=== PATIENT | male | born 1965 | race Caucasian/White ===

== ENCOUNTER 2016-05-18 15:14 | Emergency (ER) | payer MEDICARE, MEDICAID ==
[~2016-05-18] VITALS: Ht 165.1 cm; Wt 82.0 kg
[~2016-05-18 15:14] MED LIST: ALBUTEROL SUL0.083 % IN; AMOXICILLIN500 MG PO; AMOXICILLIN875 MG PO; ANTIVERT25 MG OR; ASPIRIN81 MG PO; AUGMENTIN875TAB OR; BACTRIM DS1 TAB PO; BENTYL10 MG PO; CARAFATE PO; CARVEDILOL6.25 MG OR; CEPHALEXIN500 MG PO; CIPRO500 MG OR; CIPROFLOXACN500 MG PO; CLOPIDOGREL75 MG PO; COREG12.5 MG PO; ENALAPRIL2.5 MG PO; FLEXERIL PO; GLIPIZIDE ER5 M1 PO; GLIPIZIDE XL5 MG PO; GLIPIZIDE10 M2 PO; GLYBURIDE2.5 MG PO; LIPITOR20 M1 PO; LORTAB 5 OR; LORTAB5 OR; LOVASTATIN40 M1 PO; LOVASTATIN40 MG PO; LOVAZA1 GM PO; METFORMIN HCL1000 MG PO; METFORMIN500 MG OR; METRONIDAZOL500 MG PO; MOTRIN400 MG OR; NAPROSYN500 MG OR; NAPROSYN500 MG PO; NIACIN ER1000 MG PO; OMEGA 3 ACID ETHYL ESTERS PO; OMEPRAZOLE20 MG PO; PERCOCET 10/31 COMBO PO; PERCOCET 5/325M1 TAB OR; PERCOCET 5/325M1 TAB PO; PERCOCET1 TA4 PO; PLAVIX75 MG PO; PREVPAC PO; PRILOSEC20 MG/CAP PO; PROAIR HFA IN; PROTONIX40 M2 PO; PROTONIX40 MG PO; RANITIDINE150 MG PO; SIMVASTATIN20 MG OR; TRAMADOL HCL50 MG PO; TRICOR145 MG OR; TRICOR145 MG PO; TRILIPIX135 MG OR; ULTRAM50 M1 PO; ULTRAM50 MG OR; ULTRAM50 MG PO; ZOFRAN ODT8 MG PO; no home meds
[2016-05-18 16:02] LABS: HEMATOCRIT 40.1 % (39.0-50.0); IMMATURE GRANULOCYTES 0.3 % (0.0-1.0); MEAN CELL VOLUME 85.9 fL CALC (80.0-100.0); MEAN CORPUSCULAR HGB CONC 34.9 g/L CALC (32.0-36.0); NEUT# 10.46 thou/uL (1.82-7.42); RED BLOOD COUNT 4.67 mill/uL (4.70-6.10)
[2016-05-18 16:17] LABS: ALBUMIN 4.1 g/dL (3.2-5.0); ALKALINE PHOSPHATASE 76 u/l (38-126); ANION GAP 16 (6-22 (CALC)); BILIRUBIN, TOTAL 0.6 mg/dL (0.0-1.4); BUN 9 mg/dL (9-20); BUN/CREATININE RATIO 11 (12-20 (CALC)); CALCIUM 9.3 mg/dL (8.4-10.2); CARBON DIOXIDE 24 mmol/l (22-30); CHLORIDE 108 mmol/l (95-108); CREATININE 0.8 mg/dL (0.7-1.3); GFR > 60 ML/MIN (>=60 (CALC)); GFR FOR AFR.AMER. > 60 ML/MIN (>=60 (CALC)); GLUCOSE 89 mg/dL (75-110); POTASSIUM 4.1 mmol/l (3.5-5.1); SGOT/AST 23 u/l (17-59); SGPT/ALT 30 u/l (21-72); SODIUM 143 mmol/l (137-146); TOTAL PROTEIN 6.7 g/dL (6.3-8.2)
[2016-05-18 16:28] LABS: MYOGLOBIN 22 ng/mL (0 - 121)
[2016-05-18] MEDS ORDERED: PREDNISONE10 MG PO (16:57)
[2016-05-18] MEDS ORDERED: VENTOLIN HF1 IN (16:57)
[2016-05-18] MEDS ORDERED: ZITHROMAX250 MG PO (16:57)
[2016-05-18 16:58] VITALS: BP 140/92
== END 2016-05-18 17:10 | disposition home or self-care (01) ==
LOC: ED 15:14
PROVIDERS: Emergency Medicine
DX: J40 Bronchitis, not specified as acute or chronic (principal); R06.2 Wheezing; R06.02 Shortness of breath; R05 Cough; I10 Essential (primary) hypertension; R53.83 Other fatigue

== ENCOUNTER 2016-08-24 10:59 | Inpatient (IN) | payer MEDICARE, MEDICAID ==
[~2016-08-24] VITALS: Ht 165.1 cm; Wt 86.2 kg
[~2016-08-24 10:59] MED LIST changes: +PREDNISONE10 MG PO; +VENTOLIN HF1 IN; +ZITHROMAX250 MG PO
[2016-08-24] MEDS ORDERED: LISINOPRIL10 M1 PO (11:31)
[2016-08-24 12:18] LABS: ALBUMIN 4.7 g/dL (3.2-5.0); ALKALINE PHOSPHATASE 91 u/l (38-126); ANION GAP 15 (6-22 (CALC)); BILIRUBIN, TOTAL 0.5 mg/dL (0.0-1.4); BUN 8 mg/dL (9-20); BUN/CREATININE RATIO 9 (12-20 (CALC)); CALCIUM 8.9 mg/dL (8.4-10.2); CARBON DIOXIDE 27 mmol/l (22-30); CHLORIDE 98 mmol/l (95-108); CPK 63 u/l (52-200); CREATININE 0.9 mg/dL (0.7-1.3); GFR > 60 ML/MIN (>=60 (CALC)); GFR FOR AFR.AMER. > 60 ML/MIN (>=60 (CALC)); GLUCOSE 206 mg/dL (75-110); HEMATOCRIT 46.5 % (39.0-50.0); IMMATURE GRANULOCYTES 0.4 % (0.0-1.0); LIPASE 55 u/l (23-300); MEAN CELL VOLUME 87.4 fL CALC (80.0-100.0); MEAN CORPUSCULAR HGB 30.1 pG CALC (26.0-32.0); MEAN CORPUSCULAR HGB CONC 34.4 g/L CALC (32.0-36.0); NEUT# 12.71 thou/uL (1.82-7.42); POTASSIUM 3.7 mmol/l (3.5-5.1); RED BLOOD COUNT 5.32 mill/uL (4.70-6.10); RED CELL DISTRI WIDTH 12.5 % (11.5-15.5); SGOT/AST 28 u/l (17-59); SGPT/ALT 47 u/l (21-72); SODIUM 136 mmol/l (137-146); TOTAL PROTEIN 7.8 g/dL (6.3-8.2)
[2016-08-24 12:23] LABS: PROTHROMBIN TIME 10.8 SECONDS (9.0-12.5)
[2016-08-24 12:28] LABS: MYOGLOBIN 37 ng/mL (0 - 121)
[2016-08-24 13:27] LABS: URINE BILIRUBIN - DIPSTICK NEGATIVE (NEGATIVE); URINE BLOOD DIPSTICK TRACE-INTACT (NEGATIVE); URINE CLARITY CLEAR; URINE COLOR YELLOW; URINE GLUCOSE - DIPSTICK 250 mg/dL (NEGATIVE); URINE KETONE NEGATIVE (NEGATIVE); URINE LEUK ESTERASE NEGATIVE (Negative); URINE NITRITE - DIPSTICK NEGATIVE (Negative); URINE PH 5.5 (4.5-8.0); URINE PROTEIN - DIPSTICK TRACE mg/dL (NEG-TRACE); URINE SPECIFIC GRAVITY 1.025; URINE UROBILINOGEN - DIPSTICK 0.2 E.U./dL (0.2)
[2016-08-24 13:28] LABS: INFLUENZA A NONE DETECTED (NONE DETECT); INFLUENZA B NONE DETECTED (NONE DETECT)
[2016-08-24 19:20] VITALS: BP 116/77
[2016-08-25 04:20] VITALS: BP 122/82
[2016-08-25 06:42] LABS: ALBUMIN 4.1 g/dL (3.2-5.0); ALKALINE PHOSPHATASE 75 u/l (38-126); ANION GAP 16 (6-22 (CALC)); BILIRUBIN, TOTAL 0.4 mg/dL (0.0-1.4); BUN 13 mg/dL (9-20); BUN/CREATININE RATIO 17 (12-20 (CALC)); CALCIUM 8.8 mg/dL (8.4-10.2); CARBON DIOXIDE 24 mmol/l (22-30); CHLORIDE 100 mmol/l (95-108); CREATININE 0.8 mg/dL (0.7-1.3); GFR > 60 ML/MIN (>=60 (CALC)); GFR FOR AFR.AMER. > 60 ML/MIN (>=60 (CALC)); GLUCOSE 260 mg/dL (75-110); POTASSIUM 4.5 mmol/l (3.5-5.1); SGOT/AST 24 u/l (17-59); SGPT/ALT 42 u/l (21-72); SODIUM 135 mmol/l (137-146); TOTAL PROTEIN 6.6 g/dL (6.3-8.2)
[2016-08-25] MEDS ORDERED: DUONEB NEB (09:01)
[2016-08-25] MEDS ORDERED: AUGMENTIN875TAB PO (09:25)
[2016-08-25] MEDS ORDERED: AMANTADINE100 MG PO (09:28)
[2016-08-25] MEDS ORDERED: FLONASE AL50 MCG/ACT (09:37)
[2016-08-25 09:59] LABS: HEMATOCRIT 40.4 % (39.0-50.0); HEMOGLOBIN 13.9 g/dl (14.0-18.0); IMMATURE GRANULOCYTES 0.8 % (0.0-1.0); MEAN CELL VOLUME 86.5 fL CALC (80.0-100.0); MEAN CORPUSCULAR HGB 29.8 pG CALC (26.0-32.0); MEAN CORPUSCULAR HGB CONC 34.4 g/L CALC (32.0-36.0); NEUT# 13.39 thou/uL (1.82-7.42); RED BLOOD COUNT 4.67 mill/uL (4.70-6.10); RED CELL DISTRI WIDTH 12.5 % (11.5-15.5)
[2016-08-25 10:55] VITALS: BP 117/72
[2016-08-25 15:24] VITALS: BP 123/77
[2016-08-25 19:13] VITALS: BP 122/68
[2016-08-25 23:27] VITALS: BP 119/65
[2016-08-26 04:17] VITALS: BP 123/76
[2016-08-26 05:41] LABS: HEMATOCRIT 38.6 % (39.0-50.0); HEMOGLOBIN 13.1 g/dl (14.0-18.0); IMMATURE GRANULOCYTES 1.1 % (0.0-1.0); MEAN CELL VOLUME 87.5 fL CALC (80.0-100.0); MEAN CORPUSCULAR HGB 29.7 pG CALC (26.0-32.0); MEAN CORPUSCULAR HGB CONC 33.9 g/L CALC (32.0-36.0); NEUT# 16.84 thou/uL (1.82-7.42); RED BLOOD COUNT 4.41 mill/uL (4.70-6.10); RED CELL DISTRI WIDTH 12.4 % (11.5-15.5)
[2016-08-26 05:46] LABS: ALBUMIN 3.6 g/dL (3.2-5.0); ALKALINE PHOSPHATASE 67 u/l (38-126); ANION GAP 13 (6-22 (CALC)); BILIRUBIN, TOTAL 0.3 mg/dL (0.0-1.4); BUN 12 mg/dL (9-20); BUN/CREATININE RATIO 17 (12-20 (CALC)); CALCIUM 8.6 mg/dL (8.4-10.2); CARBON DIOXIDE 24 mmol/l (22-30); CHLORIDE 103 mmol/l (95-108); CREATININE 0.7 mg/dL (0.7-1.3); GFR > 60 ML/MIN (>=60 (CALC)); GFR FOR AFR.AMER. > 60 ML/MIN (>=60 (CALC)); GLUCOSE 192 mg/dL (75-110); POTASSIUM 4.3 mmol/l (3.5-5.1); SGOT/AST 20 u/l (17-59); SGPT/ALT 39 u/l (21-72); SODIUM 136 mmol/l (137-146); TOTAL PROTEIN 5.9 g/dL (6.3-8.2)
[2016-08-26 07:41] VITALS: BP 137/83
[2016-08-26 12:30] VITALS: BP 119/71
[2016-08-26 16:30] VITALS: BP 121/74
[2016-08-26 19:35] VITALS: BP 139/79
[2016-08-27 00:07] VITALS: BP 151/84
[2016-08-27 04:00] VITALS: BP 115/66
[2016-08-27 05:39] LABS: HEMATOCRIT 39.3 % (39.0-50.0); HEMOGLOBIN 13.6 g/dl (14.0-18.0); IMMATURE GRANULOCYTES 4.5 % (0.0-1.0); MEAN CELL VOLUME 86.8 fL CALC (80.0-100.0); MEAN CORPUSCULAR HGB CONC 34.6 g/L CALC (32.0-36.0); NEUT# 15.84 thou/uL (1.82-7.42); RED BLOOD COUNT 4.53 mill/uL (4.70-6.10); RED CELL DISTRI WIDTH 12.3 % (11.5-15.5)
[2016-08-27 05:55] LABS: ALBUMIN 3.7 g/dL (3.2-5.0); ALKALINE PHOSPHATASE 64 u/l (38-126); ANION GAP 15 (6-22 (CALC)); BILIRUBIN, TOTAL 0.5 mg/dL (0.0-1.4); BUN 14 mg/dL (9-20); BUN/CREATININE RATIO 17 (12-20 (CALC)); CALCIUM 8.8 mg/dL (8.4-10.2); CARBON DIOXIDE 23 mmol/l (22-30); CHLORIDE 103 mmol/l (95-108); CREATININE 0.8 mg/dL (0.7-1.3); GFR > 60 ML/MIN (>=60 (CALC)); GFR FOR AFR.AMER. > 60 ML/MIN (>=60 (CALC)); GLUCOSE 78 mg/dL (75-110); POTASSIUM 3.9 mmol/l (3.5-5.1); SGOT/AST 50 u/l (17-59); SGPT/ALT 54 u/l (21-72); SODIUM 138 mmol/l (137-146); TOTAL PROTEIN 6.1 g/dL (6.3-8.2)
[2016-08-27 08:00] VITALS: BP 150/88
[2016-08-27 11:35] VITALS: BP 142/83
[2016-08-27 16:10] VITALS: BP 161/87
[2016-08-27 20:11] VITALS: BP 139/75
[2016-08-28] VITALS (7 sets, daily range): BP systolic 126–174; BP diastolic 69–88
[2016-08-28 04:51] LABS: HEMATOCRIT 38.7 % (39.0-50.0); HEMOGLOBIN 13.3 g/dl (14.0-18.0); IMMATURE GRANULOCYTES 4.2 % (0.0-1.0); MEAN CORPUSCULAR HGB 29.9 pG CALC (26.0-32.0); MEAN CORPUSCULAR HGB CONC 34.4 g/L CALC (32.0-36.0); NEUT# 6.44 thou/uL (1.82-7.42); RED BLOOD COUNT 4.45 mill/uL (4.70-6.10); RED CELL DISTRI WIDTH 12.2 % (11.5-15.5)
[2016-08-28 05:03] LABS: ANION GAP 11 (6-22 (CALC)); BUN 10 mg/dL (9-20); BUN/CREATININE RATIO 12 (12-20 (CALC)); CALCIUM 8.3 mg/dL (8.4-10.2); CARBON DIOXIDE 30 mmol/l (22-30); CHLORIDE 101 mmol/l (95-108); CREATININE 0.9 mg/dL (0.7-1.3); GFR > 60 ML/MIN (>=60 (CALC)); GFR FOR AFR.AMER. > 60 ML/MIN (>=60 (CALC)); GLUCOSE 104 mg/dL (75-110); POTASSIUM 3.6 mmol/l (3.5-5.1); SODIUM 138 mmol/l (137-146)
[2016-08-29 00:29] VITALS: BP 150/91
[2016-08-29 07:32] VITALS: BP 156/89
[2016-08-29 11:52] VITALS: BP 130/81
== END 2016-08-29 13:30 | disposition home or self-care (01) | DRG 386 ==
LOC: ENPENDDIS → ED 10:59 → ED-I 16:24 → ED 17:32 → MS2 17:33
PROVIDERS: Emergency Medicine; ADMIT Internal Medicine Geriatric Medicine; ATTEND Internal Medicine Geriatric Medicine
DX: K50.80 Crohn's disease of both small and large intestine without complications (principal); J44.0 Chronic obstructive pulmonary disease with (acute) lower respiratory infection; J20.9 Acute bronchitis, unspecified; F17.210 Nicotine dependence, cigarettes, uncomplicated; I10 Essential (primary) hypertension; E11.9 Type 2 diabetes mellitus without complications; K21.9 Gastro-esophageal reflux disease without esophagitis; M19.90 Unspecified osteoarthritis, unspecified site; E78.5 Hyperlipidemia, unspecified; I25.2 Old myocardial infarction; Z95.5 Presence of coronary angioplasty implant and graft; Z79.84 Long term (current) use of oral hypoglycemic drugs
CPT/HCPCS: J1956; Q9967

== ENCOUNTER 2016-09-11 18:10 | Emergency (ER) | payer MEDICARE, MEDICAID ==
[~2016-09-11] VITALS: Ht 170.2 cm; Wt 85.5 kg
[~2016-09-11 18:10] MED LIST changes: +AMANTADINE100 MG PO; +AUGMENTIN875TAB PO; +DUONEB NEB; +FLONASE AL50 MCG/ACT; +LISINOPRIL10 M1 PO
[2016-09-11 19:57] LABS: HEMATOCRIT 42.1 % (39.0-50.0); HEMOGLOBIN 14.4 g/dl (14.0-18.0); IMMATURE GRANULOCYTES 0.4 % (0.0-1.0); MEAN CELL VOLUME 87.5 fL CALC (80.0-100.0); MEAN CORPUSCULAR HGB 29.9 pG CALC (26.0-32.0); MEAN CORPUSCULAR HGB CONC 34.2 g/L CALC (32.0-36.0); NEUT# 7.28 thou/uL (1.82-7.42); RED BLOOD COUNT 4.81 mill/uL (4.70-6.10); RED CELL DISTRI WIDTH 12.6 % (11.5-15.5)
[2016-09-11 20:08] LABS: ALBUMIN 4.4 g/dL (3.2-5.0); ALKALINE PHOSPHATASE 91 u/l (38-126); AMYLASE 42 u/l (30-110); ANION GAP 16 (6-22 (CALC)); BILIRUBIN, TOTAL 0.5 mg/dL (0.0-1.4); BUN 11 mg/dL (9-20); BUN/CREATININE RATIO 15 (12-20 (CALC)); CALCIUM 9.7 mg/dL (8.4-10.2); CARBON DIOXIDE 24 mmol/l (22-30); CHLORIDE 102 mmol/l (95-108); CREATININE 0.7 mg/dL (0.7-1.3); GFR > 60 ML/MIN (>=60 (CALC)); GFR FOR AFR.AMER. > 60 ML/MIN (>=60 (CALC)); GLUCOSE 152 mg/dL (75-110); LIPASE 115 u/l (23-300); POTASSIUM 4.5 mmol/l (3.5-5.1); SGOT/AST 32 u/l (17-59); SGPT/ALT 51 u/l (21-72); SODIUM 137 mmol/l (137-146); TOTAL PROTEIN 7.1 g/dL (6.3-8.2)
[2016-09-11 21:30] LABS: URINE BILIRUBIN - DIPSTICK NEGATIVE (NEGATIVE); URINE BLOOD DIPSTICK TRACE-INTACT (NEGATIVE); URINE CLARITY CLEAR; URINE COLOR YELLOW; URINE GLUCOSE - DIPSTICK 250 mg/dL (NEGATIVE); URINE KETONE NEGATIVE (NEGATIVE); URINE LEUK ESTERASE NEGATIVE (NEGATIVE); URINE NITRITE - DIPSTICK NEGATIVE (Negative); URINE PROTEIN - DIPSTICK NEGATIVE (NEG-TRACE); URINE SPECIFIC GRAVITY 1.025; URINE UROBILINOGEN - DIPSTICK 0.2 E.U./dL (0.2)
[2016-09-11] MEDS ORDERED: ULTRAM50 M1 PO (23:20)
[2016-09-11] MEDS ORDERED: ZOFRAN ODT4 MG PO (23:32)
[2016-09-11 23:43] VITALS: BP 152/77
== END 2016-09-11 23:40 | disposition home or self-care (01) ==
LOC: ED 18:10
PROVIDERS: Emergency Medicine
DX: R10.31 Right lower quadrant pain (principal); I88.9 Nonspecific lymphadenitis, unspecified; E11.9 Type 2 diabetes mellitus without complications; Z79.84 Long term (current) use of oral hypoglycemic drugs; I10 Essential (primary) hypertension; I25.2 Old myocardial infarction; F17.210 Nicotine dependence, cigarettes, uncomplicated; Z95.9 Presence of cardiac and vascular implant and graft, unspecified; K21.9 Gastro-esophageal reflux disease without esophagitis; R10.9 Unspecified abdominal pain
CPT/HCPCS: Q9967

== ENCOUNTER 2016-09-29 10:51 | Day surgery (SDC) | payer MEDICARE, MEDICAID ==
[~2016-09-29] VITALS: Ht 170.2 cm; Wt 83.9 kg
[~2016-09-29 10:51] MED LIST changes: +ZOFRAN ODT4 MG PO
[2016-09-29 15:13] VITALS: BP 118/76
== END 2016-09-29 14:00 | disposition home or self-care (01) ==
LOC: ENDO 10:51 → ORM 20:45 → ENDO 20:45 → ORM 21:45
PROVIDERS: ATTEND Internal Medicine Gastroenterology
PROC: 0DBN8ZX Excision of Sigmoid Colon, Via Natural or Artificial Opening Endoscopic, Diagnostic (ICD-10-PCS; principal; 2016-09-29)
PROC: 0DBP8ZX Excision of Rectum, Via Natural or Artificial Opening Endoscopic, Diagnostic (ICD-10-PCS; 2016-09-29)
PROC: 0DBE8ZX Excision of Large Intestine, Via Natural or Artificial Opening Endoscopic, Diagnostic (ICD-10-PCS; 2016-09-29)
PROC: 0DBP8ZX Excision of Rectum, Via Natural or Artificial Opening Endoscopic, Diagnostic (ICD-10-PCS; 2016-09-29)
DX: R10.31 Right lower quadrant pain (principal); R11.0 Nausea; R19.7 Diarrhea, unspecified; K63.5 Polyp of colon; K62.1 Rectal polyp; K64.4 Residual hemorrhoidal skin tags; K64.8 Other hemorrhoids

== ENCOUNTER 2016-10-31 21:28 | Observation (INO) | payer MEDICARE, MEDICAID ==
[~2016-10-31] VITALS: Ht 170.2 cm; Wt 83.0 kg
--- NOTE | 2016-10-31 21:30 | NUR ---
PATIENT AMBULATORY TO ROOM 15. UNDRESSED INTO A GOWN. PLACED ON MONITOR. AWAITING MD HOLLIDAY.
--- NOTE | 2016-10-31 22:23 | NUR ---
PATIENT MEDICATED ORDERED. STATES HE WOULD LIKE SOMETHING FOR HIS CHEST PAIN. EXPLAINED THE PURPOSE AND FUNCTION OF NTG PASTE. AND PATIENT RESPONDS WITH HE WOULD LIKE SOME PAIN MEDICINE FOR HIS UPPER ABDOMINAL PAIN, HOWEVER PATIENT DENIES PAIN ON TRIAGE.
[2016-10-31 22:29] LABS: HEMATOCRIT 45.9 % (39.0-50.0); HEMOGLOBIN 15.9 g/dl (14.0-18.0); IMMATURE GRANULOCYTES 1.2 % (0.0-1.0); MEAN CELL VOLUME 86.4 fL CALC (80.0-100.0); MEAN CORPUSCULAR HGB 29.9 pG CALC (26.0-32.0); MEAN CORPUSCULAR HGB CONC 34.6 g/L CALC (32.0-36.0); NEUT# 8.91 thou/uL (1.82-7.42); RED BLOOD COUNT 5.31 mill/uL (4.70-6.10); RED CELL DISTRI WIDTH 12.9 % (11.5-15.5)
--- NOTE | 2016-10-31 22:30 | NUR ---
PATIENT ARRIVES AT BEDSIDE.
[2016-10-31 22:42] LABS: ALBUMIN 4.8 g/dL (3.2-5.0); ALKALINE PHOSPHATASE 89 u/l (38-126); ANION GAP 20 (6-22 (CALC)); BILIRUBIN, TOTAL 0.8 mg/dL (0.0-1.4); BUN 23 mg/dL (9-20); BUN/CREATININE RATIO 12 (12-20 (CALC)); CALCIUM 10.3 mg/dL (8.4-10.2); CARBON DIOXIDE 22 mmol/l (22-30); CHLORIDE 99 mmol/l (95-108); CREATININE 1.9 mg/dL (0.7-1.3); GFR 38 ML/MIN (>=60 (CALC)); GFR FOR AFR.AMER. 46 ML/MIN (>=60 (CALC)); GLUCOSE 289 mg/dL (75-110); POTASSIUM 4.3 mmol/l (3.5-5.1); SGOT/AST 19 u/l (17-59); SGPT/ALT 40 u/l (21-72); SODIUM 137 mmol/l (137-146)
[2016-10-31 22:53] LABS: ACT PARTIAL THROMBO TIME 27.5 SECONDS (20.0-32.5); PROTHROMBIN TIME 10.7 SECONDS (9.0-12.5)
[2016-10-31 22:54] LABS: MYOGLOBIN 109 ng/mL (0 - 121)
--- NOTE | 2016-10-31 23:30 | NUR ---
PATIENT MEDICATED FOR EPIGASTRIC PAIN. STATES HE WOULD LIKE SOME PAIN MEDICATION FOR HIS "MASSIVE HEADACHE" PATIENT AWARE OF PLANS TO ADMIT
--- NOTE | 2016-11-01 00:17 | NUR ---
REPORT CALLED TO JOHNATHAN. PATIENT READIED FOR TRANSPORT TO FLOOR, ON MONITOR, WITH RN.
[2016-11-01 00:30] VITALS: BP 110/76
--- NOTE | 2016-11-01 00:30 | NUR ---
PT ARRIVED TO UNIT VIA WHEELCHAIR WITH ER STAFF. ALERT AND ORIENTED UPON ARRIVAL. NURSE LIAISON IN PLACE. C/O HEADACHE AND EPIGASTRIC PAIN CURRENTLY; STATES THAT GI COCKTAIL GIVEN IN ED MADE HIM NAUSEOUS. ORIENTED TO ROOM AND CALL LIGHT SYSTEM. SAFETY MEASURES IN PLACE. CALL LIGHT WITHIN REACH.
--- NOTE | 2016-11-01 04:00 | NUR ---
PT ASLEEP AT THIS TIME. NO SIGNS OF DISTRESS NOTED. RESPIRATIONS EVEN AND UNLABORED. NO CHANGES IN ASSESSMENT. CONDITION IS STABLE WITH NEGATIVE TROPONINS. NITRO PASTE REMOVED FROM CHEST FOR DECREASED BLOOD PRESSURE. SAFETY MEASURES IN PLACE. CALL LIGHT WITHIN REACH.
[2016-11-01 04:40] VITALS: BP 99/62
[2016-11-01 05:52] LABS: URINE BLOOD DIPSTICK NEGATIVE (NEGATIVE); URINE CLARITY CLEAR; URINE COLOR YELLOW; URINE GLUCOSE - DIPSTICK 100 mg/dL (NEGATIVE); URINE KETONE TRACE mg/dL (NEGATIVE); URINE LEUK ESTERASE NEGATIVE (NEGATIVE); URINE NITRITE - DIPSTICK NEGATIVE (Negative); URINE PROTEIN - DIPSTICK 30 mg/dL (NEG-TRACE); URINE SPECIFIC GRAVITY >=1.030; URINE UROBILINOGEN - DIPSTICK 0.2 E.U./dL (0.2)
[2016-11-01 06:31] LABS: URINE BILIRUBIN - DIPSTICK NEGATIVE (NEGATIVE)
[2016-11-01 06:36] LABS: URINE HYALINE CAST FEW lpf (NONE-RARE); URINE MUCUS FEW hpf (NONE-FEW); URINE SQUAMOUS EPITHELIAL CELL FEW EPI/hpf (0-FEW)
[2016-11-01 06:37] LABS: URINE COARSE GRANULAR CAST FEW lpf; URINE FINE GRAN CAST FEW lpf
[2016-11-01 06:38] LABS: URINE BACTERIA MODERATE hpf
--- NOTE | 2016-11-01 07:20 | NUR ---
PT RESTING WITH EYES CLOSED; NO S/SX OF DISTRESS NOTED; CALL COLLIER WITHIN REACH; WILL CONTINUE TO MONITOR.
[2016-11-01 08:06] LABS: HEMATOCRIT 43.1 % (39.0-50.0); HEMOGLOBIN 14.8 g/dl (14.0-18.0); IMMATURE GRANULOCYTES 1.3 % (0.0-1.0); MEAN CELL VOLUME 86.9 fL CALC (80.0-100.0); MEAN CORPUSCULAR HGB 29.8 pG CALC (26.0-32.0); MEAN CORPUSCULAR HGB CONC 34.3 g/L CALC (32.0-36.0); NEUT# 6.2 thou/uL (1.82-7.42); RED BLOOD COUNT 4.96 mill/uL (4.70-6.10)
[2016-11-01 08:24] LABS: ALBUMIN 4.4 g/dL (3.2-5.0); ALKALINE PHOSPHATASE 84 u/l (38-126); AMYLASE 49 u/l (30-110); ANION GAP 17 (6-22 (CALC)); BILIRUBIN, TOTAL 0.9 mg/dL (0.0-1.4); BUN 27 mg/dL (9-20); BUN/CREATININE RATIO 14 (12-20 (CALC)); CALCIUM 9.8 mg/dL (8.4-10.2); CARBON DIOXIDE 24 mmol/l (22-30); CHLORIDE 101 mmol/l (95-108); CHOLESTEROL HDL RATIO 9.1 (<4.4 (CALC)); CREATININE 1.9 mg/dL (0.7-1.3); GFR 38 ML/MIN (>=60 (CALC)); GFR FOR AFR.AMER. 46 ML/MIN (>=60 (CALC)); GLUCOSE 215 mg/dL (75-110); HDL CHOLESTEROL 25 mg/dL (>=40); LIPASE 90 u/l (23-300); POTASSIUM 4.5 mmol/l (3.5-5.1); SGOT/AST 17 u/l (17-59); SGPT/ALT 38 u/l (21-72); SODIUM 138 mmol/l (137-146); TOTAL CHOLESTEROL 227 mg/dl (0-199); TOTAL PROTEIN 7.3 g/dL (6.3-8.2)
[2016-11-01 08:27] VITALS: BP 111/69; BP 95/44
[2016-11-01 08:31] LABS: VLDL CHOLESTROL 180 mg/dl (5-56 (CALC))
[2016-11-01 08:33] LABS: TOTAL TRIGLYCERIDES 900 mg/dl (30-149)
--- NOTE | 2016-11-01 11:00 | NUR ---
PT AMBULATORY IN HALLS; DENIES PAIN; REQUESTING TO CALL MD FOR D/C ORDERS; WILL CONTINUE TO MONITOR.
[2016-11-01 11:18] VITALS: BP 111/74
[2016-11-01] MEDS ORDERED: PRANDIN1 MG PO (13:09)
[2016-11-01] MEDS ORDERED: TRICOR145 MG PO (13:15)
--- NOTE | 2016-11-01 13:47 | NUR ---
Discharge instructions given. Patient verbalizes understanding of same. Discharged in stable condition via Ambulatory to Home with family. All belongings sent with pt.
== END 2016-11-01 13:45 | disposition home or self-care (01) ==
LOC: ED 21:28 → ED-I 23:00 → ED 23:32 → MS2 23:33
PROVIDERS: Emergency Medicine; ADMIT Internal Medicine Geriatric Medicine; ATTEND Internal Medicine Geriatric Medicine
DX: R07.9 Chest pain, unspecified (principal); I10 Essential (primary) hypertension; I25.10 Atherosclerotic heart disease of native coronary artery without angina pectoris; E11.9 Type 2 diabetes mellitus without complications; J44.9 Chronic obstructive pulmonary disease, unspecified; E78.00 Pure hypercholesterolemia, unspecified; F17.210 Nicotine dependence, cigarettes, uncomplicated; M19.90 Unspecified osteoarthritis, unspecified site; K21.9 Gastro-esophageal reflux disease without esophagitis; I25.2 Old myocardial infarction; Z82.49 Family history of ischemic heart disease and other diseases of the circulatory system; Z95.5 Presence of coronary angioplasty implant and graft; Z95.1 Presence of aortocoronary bypass graft; Z87.11 Personal history of peptic ulcer disease; R06.02 Shortness of breath
CPT/HCPCS: G0378

== ENCOUNTER 2017-02-09 09:31 | Emergency (ER) | payer MEDICARE, MEDICAID ==
[~2017-02-09] VITALS: Ht 152.4 cm; Wt 82.0 kg
[~2017-02-09 09:31] MED LIST changes: +PRANDIN1 MG PO
[2017-02-09 10:23] LABS: INFLUENZA A NONE DETECTED (NONE DETECT); INFLUENZA B NONE DETECTED (NONE DETECT)
[2017-02-09] MEDS ORDERED: AMOXICILLIN500 M2 PO (11:13)
[2017-02-09 11:14] VITALS: BP 126/81
== END 2017-02-09 11:20 | disposition home or self-care (01) ==
LOC: ED 09:31
PROVIDERS: Emergency Medicine
DX: J40 Bronchitis, not specified as acute or chronic (principal); F17.210 Nicotine dependence, cigarettes, uncomplicated; R05 Cough

== ENCOUNTER 2017-02-15 20:14 | Emergency (ER) | payer MEDICARE, MEDICAID ==
[~2017-02-15 20:14] MED LIST changes: +AMOXICILLIN500 M2 PO
== END 2017-02-15 20:28 | disposition left against medical advice (07) ==
LOC: ED 20:14 → LWOBS 20:20
DX: Z91.19 Patient's noncompliance with other medical treatment and regimen (principal)

== ENCOUNTER 2017-03-11 11:40 | Emergency (ER) | payer MEDICARE, MEDICAID ==
[~2017-03-11] VITALS: Ht 170.2 cm; Wt 84.0 kg
[2017-03-11] MEDS ORDERED: TIZANIDINE HCL4 MG PO (12:04)
[2017-03-11] MEDS ORDERED: GLUCOTROL10 MG PO (12:05)
[2017-03-11] MEDS ORDERED: REPAGLINIDE1 MG PO (12:06)
[2017-03-11] MEDS ORDERED: COREG25 MG PO (12:07)
[2017-03-11] MEDS ORDERED: ATORVASTATIN CA20 MG PO (12:07)
[2017-03-11] MEDS ORDERED: OXYCOD/APAP1 TA4 PO (12:08)
[2017-03-11] MEDS ORDERED: OMEPRAZOLE20 M2 PO (12:09)
[2017-03-11] MEDS ORDERED: OMEGA 31000 MG PO (12:10)
[2017-03-11] MEDS ORDERED: VENTOLIN HFA IN (12:16)
[2017-03-11] MEDS ORDERED: TESSALON PER100 MG PO (12:16)
[2017-03-11] MEDS ORDERED: PREDNISONE50 MG PO (12:16)
[2017-03-11] MEDS ORDERED: ZITHROMAX250 MG PO (12:16)
[2017-03-11] MEDS ORDERED: MOTRIN800 MG PO (12:16)
[2017-03-11 12:34] LABS: INFLUENZA A NONE DETECTED (NONE DETECT); INFLUENZA B NONE DETECTED (NONE DETECT)
[2017-03-11 12:51] VITALS: BP 157/91
== END 2017-03-11 12:52 | disposition home or self-care (01) ==
LOC: ED 11:40
PROVIDERS: Emergency Medicine
DX: J40 Bronchitis, not specified as acute or chronic (principal); F17.210 Nicotine dependence, cigarettes, uncomplicated; R50.9 Fever, unspecified; R05 Cough; R11.2 Nausea with vomiting, unspecified; R42 Dizziness and giddiness

== ENCOUNTER 2017-04-12 15:17 | Emergency (ER) | payer MEDICARE, MEDICAID ==
[~2017-04-12] VITALS: Ht 170.2 cm; Wt 90.2 kg
[~2017-04-12 15:17] MED LIST changes: +ATORVASTATIN CA20 MG PO; +COREG25 MG PO; +GLUCOTROL10 MG PO; +MOTRIN800 MG PO; +OMEGA 31000 MG PO; +OMEPRAZOLE20 M2 PO; +OXYCOD/APAP1 TA4 PO; +PREDNISONE50 MG PO; +REPAGLINIDE1 MG PO; +TESSALON PER100 MG PO; +TIZANIDINE HCL4 MG PO; +VENTOLIN HFA IN
[2017-04-12] MEDS ORDERED: PENICILLN VK500 MG PO (15:54)
[2017-04-12 16:01] VITALS: BP 151/98
== END 2017-04-12 16:02 | disposition home or self-care (01) ==
LOC: ED 15:17
DX: J02.0 Streptococcal pharyngitis (principal); R50.9 Fever, unspecified; F17.210 Nicotine dependence, cigarettes, uncomplicated; R59.0 Localized enlarged lymph nodes

== ENCOUNTER 2017-05-20 19:41 | Emergency (ER) | payer MEDICARE, MEDICAID ==
[~2017-05-20] VITALS: Ht 170.2 cm; Wt 81.8 kg
[~2017-05-20 19:41] MED LIST changes: +PENICILLN VK500 MG PO
[2017-05-20 20:55] LABS: HEMATOCRIT 41.1 % (39.0-50.0); HEMOGLOBIN 13.8 g/dl (14.0-18.0); IMMATURE GRANULOCYTES 0.8 % (0.0-1.0); MEAN CELL VOLUME 87.6 fL CALC (80.0-100.0); MEAN CORPUSCULAR HGB 29.4 pG CALC (26.0-32.0); MEAN CORPUSCULAR HGB CONC 33.6 g/L CALC (32.0-36.0); NEUT# 7.7 thou/uL (1.82-7.42); RED BLOOD COUNT 4.69 mill/uL (4.70-6.10); RED CELL DISTRI WIDTH 13.4 % (11.5-15.5)
[2017-05-20 21:22] LABS: ALBUMIN 3.8 g/dL (3.2-5.0); ALKALINE PHOSPHATASE 88 u/l (38-126); ANION GAP 18 (6-22 (CALC)); BILIRUBIN, TOTAL 0.3 mg/dL (0.0-1.4); BUN 8 mg/dL (9-20); BUN/CREATININE RATIO 9 (12-20 (CALC)); CARBON DIOXIDE 23 mmol/l (22-30); CHLORIDE 105 mmol/l (95-108); CREATININE 0.9 mg/dL (0.7-1.3); GFR > 60 ML/MIN (>=60 (CALC)); GFR FOR AFR.AMER. > 60 ML/MIN (>=60 (CALC)); MAGNESIUM 1.1 mg/dL (1.6-2.3); POTASSIUM 3.8 mmol/l (3.5-5.1); SGOT/AST 18 u/l (17-59); SGPT/ALT 31 u/l (21-72); SODIUM 142 mmol/l (137-146); TOTAL PROTEIN 6.5 g/dL (6.3-8.2)
[2017-05-20] MEDS ORDERED: MAG OXIDE400 MG PO (21:52)
[2017-05-20 22:35] VITALS: BP 138/76
== END 2017-05-20 22:35 | disposition home or self-care (01) ==
LOC: ED 19:41
PROVIDERS: Family Medicine
DX: H53.2 Diplopia (principal); E83.42 Hypomagnesemia; E11.9 Type 2 diabetes mellitus without complications; Z79.84 Long term (current) use of oral hypoglycemic drugs; J32.2 Chronic ethmoidal sinusitis; J32.0 Chronic maxillary sinusitis; F17.210 Nicotine dependence, cigarettes, uncomplicated

== ENCOUNTER 2017-06-29 13:59 | Emergency (ER) | payer MEDICARE, MEDICAID ==
[~2017-06-29] VITALS: Ht 170.2 cm; Wt 82.0 kg
[~2017-06-29 13:59] MED LIST changes: +MAG OXIDE400 MG PO
[2017-06-29 17:18] LABS: HEMATOCRIT 44.1 % (39.0-50.0); HEMOGLOBIN 14.9 g/dl (14.0-18.0); IMMATURE GRANULOCYTES 0.5 % (0.0-1.0); MEAN CELL VOLUME 87.5 fL CALC (80.0-100.0); MEAN CORPUSCULAR HGB 29.6 pG CALC (26.0-32.0); MEAN CORPUSCULAR HGB CONC 33.8 g/L CALC (32.0-36.0); NEUT# 10.53 thou/uL (1.82-7.42); RED BLOOD COUNT 5.04 mill/uL (4.70-6.10); RED CELL DISTRI WIDTH 13.4 % (11.5-15.5)
[2017-06-29] MEDS ORDERED: TAMSULOSIN0.4 MG PO (17:28)
[2017-06-29] MEDS ORDERED: KEFLEX500 M1 PO (17:28)
[2017-06-29 17:37] VITALS: BP 128/66
[2017-06-29 17:38] LABS: ALBUMIN 4.1 g/dL (3.2-5.0); ALKALINE PHOSPHATASE 108 u/l (38-126); ANION GAP 17 (6-22 (CALC)); BILIRUBIN, TOTAL 0.5 mg/dL (0.0-1.4); BUN 11 mg/dL (9-20); BUN/CREATININE RATIO 12 (12-20 (CALC)); CARBON DIOXIDE 24 mmol/l (22-30); CHLORIDE 104 mmol/l (95-108); CREATININE 0.9 mg/dL (0.7-1.3); GFR > 60 ML/MIN (>=60 (CALC)); GFR FOR AFR.AMER. > 60 ML/MIN (>=60 (CALC)); LIPASE 86 u/l (23-300); SGOT/AST 21 u/l (17-59); SGPT/ALT 40 u/l (21-72); SODIUM 140 mmol/l (137-146); TOTAL PROTEIN 7.1 g/dL (6.3-8.2)
== END 2017-06-29 17:42 | disposition home or self-care (01) ==
LOC: ED 13:59
DX: N20.0 Calculus of kidney (principal); E11.9 Type 2 diabetes mellitus without complications; F17.210 Nicotine dependence, cigarettes, uncomplicated

== ENCOUNTER 2017-07-01 09:19 | Emergency (ER) | payer MEDICARE, MEDICAID ==
[~2017-07-01] VITALS: Ht 170.2 cm; Wt 81.8 kg
[~2017-07-01 09:19] MED LIST changes: +KEFLEX500 M1 PO; +TAMSULOSIN0.4 MG PO
[2017-07-01 10:29] LABS: HEMATOCRIT 41.4 % (39.0-50.0); IMMATURE GRANULOCYTES 0.4 % (0.0-1.0); MEAN CELL VOLUME 86.8 fL CALC (80.0-100.0); MEAN CORPUSCULAR HGB 29.4 pG CALC (26.0-32.0); MEAN CORPUSCULAR HGB CONC 33.8 g/L CALC (32.0-36.0); NEUT# 13.11 thou/uL (1.82-7.42); RED BLOOD COUNT 4.77 mill/uL (4.70-6.10); RED CELL DISTRI WIDTH 13.4 % (11.5-15.5)
[2017-07-01 10:43] LABS: ALBUMIN 4.2 g/dL (3.2-5.0); ALKALINE PHOSPHATASE 115 u/l (38-126); ANION GAP 18 (6-22 (CALC)); BILIRUBIN, TOTAL 0.7 mg/dL (0.0-1.4); BUN 17 mg/dL (9-20); BUN/CREATININE RATIO 12 (12-20 (CALC)); CARBON DIOXIDE 25 mmol/l (22-30); CHLORIDE 99 mmol/l (95-108); CREATININE 1.4 mg/dL (0.7-1.3); GFR 54 ML/MIN (>=60 (CALC)); GFR FOR AFR.AMER. > 60 ML/MIN (>=60 (CALC)); POTASSIUM 4.7 mmol/l (3.5-5.1); SGOT/AST 17 u/l (17-59); SGPT/ALT 33 u/l (21-72); SODIUM 137 mmol/l (137-146); TOTAL PROTEIN 7.2 g/dL (6.3-8.2)
[2017-07-01 10:59] LABS: URINE BILIRUBIN - DIPSTICK NEGATIVE (NEGATIVE); URINE BLOOD DIPSTICK LARGE (NEGATIVE); URINE CLARITY HAZY; URINE COLOR YELLOW; URINE GLUCOSE - DIPSTICK 100 mg/dL (NEGATIVE); URINE KETONE Negative (NEGATIVE); URINE NITRITE - DIPSTICK NEGATIVE (Negative); URINE PROTEIN - DIPSTICK NEGATIVE (NEG-TRACE); URINE UROBILINOGEN - DIPSTICK 0.2 E.U./dL (0.2)
[2017-07-01 11:00] LABS: URINE LEUK ESTERASE NEG (NEGATIVE); URINE RBC 50-100 RBC/hpf (0-5); URINE SQUAMOUS EPITHELIAL CELL FEW EPI/hpf (0-FEW)
[2017-07-01 11:38] VITALS: BP 133/81
== END 2017-07-01 11:35 | disposition home or self-care (01) ==
LOC: ED 09:19 → ED-I 10:46 → ED 11:35
PROVIDERS: Emergency Medicine
DX: N13.2 Hydronephrosis with renal and ureteral calculous obstruction (principal); R10.31 Right lower quadrant pain; R10.9 Unspecified abdominal pain; R11.10 Vomiting, unspecified; K59.00 Constipation, unspecified; R31.9 Hematuria, unspecified; F17.210 Nicotine dependence, cigarettes, uncomplicated

== ENCOUNTER 2017-07-02 16:42 | Observation (INO) | payer MEDICARE, MEDICAID ==
[~2017-07-02] VITALS: Ht 172.7 cm; Wt 84.4 kg
[2017-07-02 17:11] VITALS: BP 146/90
[2017-07-02 17:39] LABS: URINE BILIRUBIN - DIPSTICK NEGATIVE (NEGATIVE); URINE BLOOD DIPSTICK SMALL (NEGATIVE); URINE COLOR YELLOW; URINE GLUCOSE - DIPSTICK NEGATIVE (NEGATIVE); URINE KETONE NEGATIVE (NEGATIVE); URINE LEUK ESTERASE NEGATIVE (NEGATIVE); URINE NITRITE - DIPSTICK NEGATIVE (Negative); URINE PH 5.5 (4.5-8.0); URINE PROTEIN - DIPSTICK NEGATIVE (NEG-TRACE); URINE UROBILINOGEN - DIPSTICK 0.2 E.U./dL (0.2)
[2017-07-02 17:52] LABS: URINE CLARITY CLEAR
[2017-07-02 18:08] LABS: URINE WBC 0-2 WBC/hpf (0-5)
[2017-07-02 18:32] LABS: HEMATOCRIT 39.2 % (39.0-50.0); IMMATURE GRANULOCYTES 0.5 % (0.0-1.0); MEAN CELL VOLUME 88.7 fL CALC (80.0-100.0); MEAN CORPUSCULAR HGB 29.4 pG CALC (26.0-32.0); MEAN CORPUSCULAR HGB CONC 33.2 g/L CALC (32.0-36.0); NEUT# 8.19 thou/uL (1.82-7.42); RED BLOOD COUNT 4.42 mill/uL (4.70-6.10); RED CELL DISTRI WIDTH 13.5 % (11.5-15.5)
[2017-07-02 19:15] LABS: ANION GAP 16 (6-22 (CALC)); BUN 18 mg/dL (9-20); BUN/CREATININE RATIO 12 (12-20 (CALC)); CARBON DIOXIDE 27 mmol/l (22-30); CHLORIDE 101 mmol/l (95-108); CHOLESTEROL HDL RATIO 5.1 (<4.4 (CALC)); CREATININE 1.4 mg/dL (0.7-1.3); GFR 54 ML/MIN (>=60 (CALC)); GFR FOR AFR.AMER. > 60 ML/MIN (>=60 (CALC)); POTASSIUM 4.7 mmol/l (3.5-5.1); SODIUM 139 mmol/l (137-146)
[2017-07-02 20:15] VITALS: BP 134/85
[2017-07-03] VITALS (8 sets, daily range): BP systolic 104–131; BP diastolic 71–86
[2017-07-03 04:49] LABS: HEMATOCRIT 37.9 % (39.0-50.0); HEMOGLOBIN 12.5 g/dl (14.0-18.0); IMMATURE GRANULOCYTES 0.9 % (0.0-1.0); MEAN CELL VOLUME 88.3 fL CALC (80.0-100.0); MEAN CORPUSCULAR HGB 29.1 pG CALC (26.0-32.0); NEUT# 7.39 thou/uL (1.82-7.42); RED BLOOD COUNT 4.29 mill/uL (4.70-6.10); RED CELL DISTRI WIDTH 13.5 % (11.5-15.5)
[2017-07-03 05:06] LABS: ALKALINE PHOSPHATASE 83 u/l (38-126); ANION GAP 15 (6-22 (CALC)); BILIRUBIN, TOTAL 0.5 mg/dL (0.0-1.4); BUN 15 mg/dL (9-20); BUN/CREATININE RATIO 12 (12-20 (CALC)); CARBON DIOXIDE 24 mmol/l (22-30); CHLORIDE 105 mmol/l (95-108); CREATININE 1.3 mg/dL (0.7-1.3); GFR 59 ML/MIN (>=60 (CALC)); GFR FOR AFR.AMER. > 60 ML/MIN (>=60 (CALC)); POTASSIUM 4.7 mmol/l (3.5-5.1); SGOT/AST 17 u/l (17-59); SGPT/ALT 33 u/l (21-72); SODIUM 139 mmol/l (137-146)
[2017-07-03 05:08] LABS: ALBUMIN 3.3 g/dL (3.2-5.0)
[2017-07-03] MEDS ORDERED: CYCLOBENZAPR5 MG PO (17:18)
[2017-07-03] MEDS ORDERED: IBUPROFEN600 MG PO (17:21)
[2017-07-03] MEDS ORDERED: METFORMIN500 MG PO (17:22)
[2017-07-03] MEDS ORDERED: SYMBICORT1 AE1 PO (17:23)
[2017-07-03] MEDS ORDERED: VENTOLIN HFA PO (17:25)
[2017-07-04 00:10] VITALS: BP 127/79
[2017-07-04 04:20] VITALS: BP 115/61
[2017-07-04 05:02] LABS: HEMATOCRIT 37.2 % (39.0-50.0); HEMOGLOBIN 12.1 g/dl (14.0-18.0); IMMATURE GRANULOCYTES 0.5 % (0.0-1.0); MEAN CELL VOLUME 90.7 fL CALC (80.0-100.0); MEAN CORPUSCULAR HGB 29.5 pG CALC (26.0-32.0); MEAN CORPUSCULAR HGB CONC 32.5 g/L CALC (32.0-36.0); NEUT# 5.54 thou/uL (1.82-7.42); RED BLOOD COUNT 4.1 mill/uL (4.70-6.10); RED CELL DISTRI WIDTH 13.2 % (11.5-15.5)
[2017-07-04 05:15] LABS: ANION GAP 15 (6-22 (CALC)); BUN 13 mg/dL (9-20); BUN/CREATININE RATIO 11 (12-20 (CALC)); CARBON DIOXIDE 26 mmol/l (22-30); CHLORIDE 105 mmol/l (95-108); CREATININE 1.2 mg/dL (0.7-1.3); GFR > 60 ML/MIN (>=60 (CALC)); GFR FOR AFR.AMER. > 60 ML/MIN (>=60 (CALC)); POTASSIUM 4.2 mmol/l (3.5-5.1); SODIUM 142 mmol/l (137-146)
[2017-07-04 07:20] VITALS: BP 114/73
[2017-07-04] MEDS ORDERED: PERCOCET 5/321 COMBO PO (08:53)
[2017-07-04 10:18] VITALS: BP 114/73
== END 2017-07-04 12:20 | disposition home or self-care (01) ==
LOC: MS2 16:42
PROVIDERS: ADMIT Internal Medicine Geriatric Medicine; ATTEND Internal Medicine Geriatric Medicine
PROC: 0TC68ZZ Extirpation of Matter from Right Ureter, Via Natural or Artificial Opening Endoscopic (ICD-10-PCS; principal; 2017-07-03)
PROC: 0T768DZ Dilation of Right Ureter with Intraluminal Device, Via Natural or Artificial Opening Endoscopic (ICD-10-PCS; 2017-07-03)
DX: N13.2 Hydronephrosis with renal and ureteral calculous obstruction (principal); E11.9 Type 2 diabetes mellitus without complications; I10 Essential (primary) hypertension; J44.9 Chronic obstructive pulmonary disease, unspecified; I25.10 Atherosclerotic heart disease of native coronary artery without angina pectoris; M19.90 Unspecified osteoarthritis, unspecified site; G89.29 Other chronic pain; M54.9 Dorsalgia, unspecified; F11.20 Opioid dependence, uncomplicated; I25.2 Old myocardial infarction; K21.9 Gastro-esophageal reflux disease without esophagitis; E78.5 Hyperlipidemia, unspecified; F17.200 Nicotine dependence, unspecified, uncomplicated; Z79.02 Long term (current) use of antithrombotics/antiplatelets; Z96.643 Presence of artificial hip joint, bilateral; Z79.82 Long term (current) use of aspirin; Z79.899 Other long term (current) drug therapy; Z95.5 Presence of coronary angioplasty implant and graft
CPT/HCPCS: Q9967

== ENCOUNTER 2017-07-17 14:24 | Emergency (ER) | payer MEDICARE, MEDICAID ==
[~2017-07-17] VITALS: Ht 172.7 cm; Wt 84.2 kg
[~2017-07-17 14:24] MED LIST changes: +CYCLOBENZAPR5 MG PO; +IBUPROFEN600 MG PO; +METFORMIN500 MG PO; +PERCOCET 5/321 COMBO PO; +SYMBICORT1 AE1 PO; +VENTOLIN HFA PO
[2017-07-17 16:24] VITALS: BP 113/73
== END 2017-07-17 16:33 | disposition home or self-care (01) ==
LOC: ED 14:24
DX: S00.03XA Contusion of scalp, initial encounter (principal); I11.9 Hypertensive heart disease without heart failure; E11.9 Type 2 diabetes mellitus without complications; F17.210 Nicotine dependence, cigarettes, uncomplicated; W20.8XXA Other cause of strike by thrown, projected or falling object, initial encounter; Y93.H2 Activity, gardening and landscaping; Y92.007 Garden or yard of unspecified non-institutional (private) residence as the place of occurrence of the external cause

== ENCOUNTER 2017-09-09 12:41 | Emergency (ER) | payer MEDICARE, MEDICAID ==
[~2017-09-09] VITALS: Ht 172.7 cm; Wt 84.1 kg
[2017-09-09 12:43] VITALS: BP 153/75
[2017-09-09 14:04] LABS: HEMATOCRIT 41.6 % (39.0-50.0); HEMOGLOBIN 13.9 g/dl (14.0-18.0); IMMATURE GRANULOCYTES 0.6 % (0.0-5.0); MEAN CELL VOLUME 89.3 fL CALC (80.0-100.0); MEAN CORPUSCULAR HGB 29.8 pG CALC (26.0-32.0); MEAN CORPUSCULAR HGB CONC 33.4 g/L CALC (32.0-36.0); NEUT# 7.38 thou/uL (1.82-7.42); RED BLOOD COUNT 4.66 mill/uL (4.70-6.10)
[2017-09-09 14:19] LABS: ALBUMIN 3.9 g/dL (3.2-5.0); ALKALINE PHOSPHATASE 95 u/l (38-126); ANION GAP 13 (6-22 (CALC)); BILIRUBIN, TOTAL 0.3 mg/dL (0.0-1.4); BUN 12 mg/dL (9-20); BUN/CREATININE RATIO 14 (12-20 (CALC)); CARBON DIOXIDE 28 mmol/l (22-30); CHLORIDE 104 mmol/l (95-108); CREATININE 0.9 mg/dL (0.7-1.3); GFR > 60 ML/MIN (>=60 (CALC)); GFR FOR AFR.AMER. > 60 ML/MIN (>=60 (CALC)); POTASSIUM 4.8 mmol/l (3.5-5.1); SGOT/AST 23 u/l (17-59); SGPT/ALT 31 u/l (21-72); SODIUM 140 mmol/l (137-146); TOTAL PROTEIN 6.5 g/dL (6.3-8.2)
[2017-09-09 14:22] LABS: URINE BILIRUBIN - DIPSTICK NEGATIVE (NEGATIVE); URINE BLOOD DIPSTICK NEGATIVE (NEGATIVE); URINE COLOR YELLOW; URINE GLUCOSE - DIPSTICK NEGATIVE (NEGATIVE); URINE KETONE NEGATIVE (NEGATIVE); URINE LEUK ESTERASE NEGATIVE (NEGATIVE); URINE NITRITE - DIPSTICK NEGATIVE (Negative); URINE PROTEIN - DIPSTICK NEGATIVE (NEG-TRACE); URINE SPECIFIC GRAVITY 1.015; URINE UROBILINOGEN - DIPSTICK 0.2 E.U./dL (0.2)
[2017-09-09 14:24] LABS: URINE CLARITY CLEAR
[2017-09-09] MEDS ORDERED: TORADOL PO (17:26)
[2017-09-09] MEDS ORDERED: FLEXERIL PO (17:28)
== END 2017-09-09 17:39 | disposition home or self-care (01) ==
LOC: ED 12:41
PROVIDERS: Emergency Medicine
DX: R10.31 Right lower quadrant pain (principal); M25.551 Pain in right hip; Z96.643 Presence of artificial hip joint, bilateral
CPT/HCPCS: Q9967

== ENCOUNTER 2017-09-19 12:23 | Observation (INO) | payer MEDICARE, MEDICAID ==
[~2017-09-19] VITALS: Ht 172.7 cm; Wt 85.0 kg
[~2017-09-19 12:23] MED LIST changes: +TORADOL PO
[2017-09-19 12:53] LABS: HEMATOCRIT 41.5 % (39.0-50.0); HEMOGLOBIN 14.2 g/dl (14.0-18.0); IMMATURE GRANULOCYTES 0.5 % (0.0-5.0); MEAN CELL VOLUME 88.7 fL CALC (80.0-100.0); MEAN CORPUSCULAR HGB 30.3 pG CALC (26.0-32.0); MEAN CORPUSCULAR HGB CONC 34.2 g/L CALC (32.0-36.0); NEUT# 5.93 thou/uL (1.82-7.42); RED BLOOD COUNT 4.68 mill/uL (4.70-6.10); RED CELL DISTRI WIDTH 12.8 % (11.5-15.5)
[2017-09-19 13:23] LABS: ALBUMIN 4.1 g/dL (3.2-5.0); ALKALINE PHOSPHATASE 103 u/l (38-126); AMYLASE 76 u/l (30-110); ANION GAP 14 (6-22 (CALC)); BILIRUBIN, TOTAL 0.5 mg/dL (0.0-1.4); BUN 11 mg/dL (9-20); BUN/CREATININE RATIO 11 (12-20 (CALC)); CARBON DIOXIDE 26 mmol/l (22-30); CHLORIDE 105 mmol/l (95-108); GFR > 60 ML/MIN (>=60 (CALC)); GFR FOR AFR.AMER. > 60 ML/MIN (>=60 (CALC)); LIPASE 87 u/l (23-300); POTASSIUM 4.7 mmol/l (3.5-5.1); SGOT/AST 24 u/l (17-59); SGPT/ALT 37 u/l (21-72); SODIUM 140 mmol/l (137-146); TOTAL PROTEIN 7.1 g/dL (6.3-8.2)
[2017-09-19 13:35] LABS: MYOGLOBIN 33 ng/mL (0 - 121)
[2017-09-19 14:47] VITALS: BP 102/63
[2017-09-19 18:35] VITALS: BP 106/63
[2017-09-20 00:04] VITALS: BP 102/68
[2017-09-20 04:19] VITALS: BP 111/68
[2017-09-20 06:02] LABS: HEMOGLOBIN 12.8 g/dl (14.0-18.0); IMMATURE GRANULOCYTES 0.6 % (0.0-5.0); MEAN CELL VOLUME 89.8 fL CALC (80.0-100.0); MEAN CORPUSCULAR HGB 30.3 pG CALC (26.0-32.0); MEAN CORPUSCULAR HGB CONC 33.7 g/L CALC (32.0-36.0); NEUT# 4.45 thou/uL (1.82-7.42); RED BLOOD COUNT 4.23 mill/uL (4.70-6.10); RED CELL DISTRI WIDTH 12.9 % (11.5-15.5)
[2017-09-20 06:10] LABS: ALBUMIN 3.3 g/dL (3.2-5.0); ALKALINE PHOSPHATASE 83 u/l (38-126); ANION GAP 12 (6-22 (CALC)); BILIRUBIN, TOTAL 0.4 mg/dL (0.0-1.4); BUN 14 mg/dL (9-20); BUN/CREATININE RATIO 13 (12-20 (CALC)); CARBON DIOXIDE 28 mmol/l (22-30); CHLORIDE 104 mmol/l (95-108); CHOLESTEROL HDL RATIO 5.4 (<4.4 (CALC)); CREATININE 1.1 mg/dL (0.7-1.3); GFR > 60 ML/MIN (>=60 (CALC)); GFR FOR AFR.AMER. > 60 ML/MIN (>=60 (CALC)); HDL CHOLESTEROL 22 mg/dL (>=40); POTASSIUM 4.4 mmol/l (3.5-5.1); SGOT/AST 15 u/l (17-59); SGPT/ALT 32 u/l (21-72); SODIUM 140 mmol/l (137-146); TOTAL CHOLESTEROL 117 mg/dl (0-199); TOTAL PROTEIN 5.7 g/dL (6.3-8.2); VLDL CHOLESTROL 87 mg/dl (8-62 (CALC))
[2017-09-20 06:12] LABS: TOTAL TRIGLYCERIDES 435 mg/dl (30-149)
[2017-09-20 08:23] VITALS: BP 111/75
[2017-09-20 08:31] VITALS: BP 111/75
== END 2017-09-20 11:00 | disposition home or self-care (01) ==
LOC: ED 12:23 → ED-I 13:44 → ED 13:57 → MS2 13:58
PROVIDERS: Emergency Medicine; ADMIT Internal Medicine Geriatric Medicine; ATTEND Internal Medicine Geriatric Medicine
DX: R07.9 Chest pain, unspecified (principal); I10 Essential (primary) hypertension; I25.10 Atherosclerotic heart disease of native coronary artery without angina pectoris; E11.9 Type 2 diabetes mellitus without complications; F17.210 Nicotine dependence, cigarettes, uncomplicated; J44.9 Chronic obstructive pulmonary disease, unspecified; G89.29 Other chronic pain; F11.20 Opioid dependence, uncomplicated; F41.1 Generalized anxiety disorder; F32.9 Major depressive disorder, single episode, unspecified; K27.9 Peptic ulcer, site unspecified, unspecified as acute or chronic, without hemorrhage or perforation; K21.9 Gastro-esophageal reflux disease without esophagitis; I25.2 Old myocardial infarction; Z96.643 Presence of artificial hip joint, bilateral; Z95.5 Presence of coronary angioplasty implant and graft

== ENCOUNTER 2017-11-14 11:44 | Inpatient (IN) | payer MEDICARE, MEDICAID ==
[~2017-11-14] VITALS: Ht 172.7 cm; Wt 82.2 kg
[2017-11-14 12:53] LABS: HEMATOCRIT 40.6 % (39.0-50.0); HEMOGLOBIN 13.4 g/dl (14.0-18.0); IMMATURE GRANULOCYTES 0.3 % (0.0-5.0); MEAN CORPUSCULAR HGB 29.4 pG CALC (26.0-32.0); NEUT# 7.32 thou/uL (1.82-7.42); RED BLOOD COUNT 4.56 mill/uL (4.70-6.10); RED CELL DISTRI WIDTH 12.7 % (11.5-15.5)
[2017-11-14 13:47] LABS: ANION GAP 17 (6-22 (CALC)); BUN 13 mg/dL (9-20); BUN/CREATININE RATIO 15 (12-20 (CALC)); CARBON DIOXIDE 25 mmol/l (22-30); CHLORIDE 104 mmol/l (95-108); CREATININE 0.8 mg/dL (0.7-1.3); GFR > 60 ML/MIN (>=60 (CALC)); GFR FOR AFR.AMER. > 60 ML/MIN (>=60 (CALC)); POTASSIUM 4.4 mmol/l (3.5-5.1); SODIUM 142 mmol/l (137-146)
[2017-11-14 14:25] LABS: INFLUENZA A NONE DETECTED (NONE DETECT); INFLUENZA B NONE DETECTED (NONE DETECT)
[2017-11-14 15:26] VITALS: BP 113/75
[2017-11-14 17:00] VITALS: BP 126/79
[2017-11-14 18:11] LABS: CHOLESTEROL HDL RATIO 6.4 (<4.4 (CALC))
[2017-11-14 19:00] VITALS: BP 126/79
[2017-11-14 23:56] VITALS: BP 153/68
[2017-11-15 04:52] VITALS: BP 119/69
[2017-11-15 05:37] LABS: HEMATOCRIT 39.4 % (39.0-50.0); IMMATURE GRANULOCYTES 0.7 % (0.0-5.0); MEAN CELL VOLUME 89.7 fL CALC (80.0-100.0); MEAN CORPUSCULAR HGB 29.6 pG CALC (26.0-32.0); NEUT# 10.27 thou/uL (1.82-7.42); RED BLOOD COUNT 4.39 mill/uL (4.70-6.10); RED CELL DISTRI WIDTH 12.4 % (11.5-15.5)
[2017-11-15 05:53] LABS: ALBUMIN 3.9 g/dL (3.2-5.0); ALKALINE PHOSPHATASE 109 u/l (38-126); ANION GAP 20 (6-22 (CALC)); BILIRUBIN, TOTAL 0.2 mg/dL (0.0-1.4); BUN 13 mg/dL (9-20); BUN/CREATININE RATIO 15 (12-20 (CALC)); CARBON DIOXIDE 19 mmol/l (22-30); CHLORIDE 106 mmol/l (95-108); CREATININE 0.9 mg/dL (0.7-1.3); GFR > 60 ML/MIN (>=60 (CALC)); GFR FOR AFR.AMER. > 60 ML/MIN (>=60 (CALC)); POTASSIUM 4.9 mmol/l (3.5-5.1); SGOT/AST 21 u/l (17-59); SGPT/ALT 31 u/l (21-72); SODIUM 140 mmol/l (137-146); TOTAL PROTEIN 6.6 g/dL (6.3-8.2)
[2017-11-15 08:16] VITALS: BP 129/77
[2017-11-15 11:41] VITALS: BP 113/64
[2017-11-15 16:00] VITALS: BP 102/56
[2017-11-15 19:00] VITALS: BP 109/69
[2017-11-16 00:10] VITALS: BP 106/62
[2017-11-16 04:06] VITALS: BP 144/80
[2017-11-16 05:50] LABS: HEMATOCRIT 36.6 % (39.0-50.0); IMMATURE GRANULOCYTES 1.2 % (0.0-5.0); MEAN CELL VOLUME 89.5 fL CALC (80.0-100.0); MEAN CORPUSCULAR HGB 29.3 pG CALC (26.0-32.0); MEAN CORPUSCULAR HGB CONC 32.8 g/L CALC (32.0-36.0); NEUT# 20.72 thou/uL (1.82-7.42); RED BLOOD COUNT 4.09 mill/uL (4.70-6.10); RED CELL DISTRI WIDTH 12.7 % (11.5-15.5)
[2017-11-16 06:05] LABS: ANION GAP 17 (6-22 (CALC)); BUN 16 mg/dL (9-20); BUN/CREATININE RATIO 21 (12-20 (CALC)); CARBON DIOXIDE 22 mmol/l (22-30); CHLORIDE 105 mmol/l (95-108); CREATININE 0.8 mg/dL (0.7-1.3); GFR > 60 ML/MIN (>=60 (CALC)); GFR FOR AFR.AMER. > 60 ML/MIN (>=60 (CALC)); POTASSIUM 4.8 mmol/l (3.5-5.1); SODIUM 139 mmol/l (137-146)
[2017-11-16 07:39] VITALS: BP 129/62
[2017-11-16] MEDS ORDERED: LEVAQUIN750 MG PO (08:22)
[2017-11-16] MEDS ORDERED: MEDDOSEPAK PO (08:23)
[2017-11-16 09:00] VITALS: BP 129/62
== END 2017-11-16 10:16 | disposition home or self-care (01) | DRG 202 ==
LOC: ED 11:44 → ED-I 14:00 → ED 14:07 → MS2 14:08
PROVIDERS: Family Medicine; ADMIT Internal Medicine Geriatric Medicine; ATTEND Internal Medicine Geriatric Medicine
DX: J20.9 Acute bronchitis, unspecified (principal); J44.0 Chronic obstructive pulmonary disease with (acute) lower respiratory infection; F11.20 Opioid dependence, uncomplicated; I10 Essential (primary) hypertension; E11.9 Type 2 diabetes mellitus without complications; I25.10 Atherosclerotic heart disease of native coronary artery without angina pectoris; G89.29 Other chronic pain; M54.5 Low back pain; I48.91 Unspecified atrial fibrillation; K21.9 Gastro-esophageal reflux disease without esophagitis; E78.5 Hyperlipidemia, unspecified; I25.2 Old myocardial infarction; F17.210 Nicotine dependence, cigarettes, uncomplicated; Z79.84 Long term (current) use of oral hypoglycemic drugs; Z95.5 Presence of coronary angioplasty implant and graft; Z96.642 Presence of left artificial hip joint; Z95.1 Presence of aortocoronary bypass graft

== ENCOUNTER 2017-11-21 11:50 | Emergency (ER) | payer MEDICARE, MEDICAID ==
[~2017-11-21] VITALS: Ht 172.7 cm; Wt 70.0 kg
[~2017-11-21 11:50] MED LIST changes: +LEVAQUIN750 MG PO; +MEDDOSEPAK PO
[2017-11-21] MEDS ORDERED: PREDNISONE10 MG PO (13:12)
[2017-11-21 13:22] VITALS: BP 126/88
== END 2017-11-21 13:28 | disposition home or self-care (01) ==
LOC: ED 11:50
DX: J45.901 Unspecified asthma with (acute) exacerbation (principal); F17.200 Nicotine dependence, unspecified, uncomplicated; R06.02 Shortness of breath; R05 Cough

== ENCOUNTER 2017-12-10 14:55 | Emergency (ER) | payer MEDICARE, MEDICAID ==
[~2017-12-10] VITALS: Ht 172.7 cm; Wt 77.3 kg
[2017-12-10] MEDS ORDERED: PERCOCET 10/31 COMBO PO (15:05)
[2017-12-10 15:39] LABS: HEMATOCRIT 40.2 % (39.0-50.0); HEMOGLOBIN 13.1 g/dl (14.0-18.0); IMMATURE GRANULOCYTES 0.4 % (0.0-5.0); MEAN CORPUSCULAR HGB 29.6 pG CALC (26.0-32.0); MEAN CORPUSCULAR HGB CONC 32.6 g/L CALC (32.0-36.0); NEUT# 5.67 thou/uL (1.82-7.42); RED BLOOD COUNT 4.42 mill/uL (4.70-6.10); RED CELL DISTRI WIDTH 13.2 % (11.5-15.5); URINE BILIRUBIN - DIPSTICK NEGATIVE (NEGATIVE); URINE BLOOD DIPSTICK NEGATIVE (NEGATIVE); URINE COLOR YELLOW; URINE GLUCOSE - DIPSTICK NEGATIVE (NEGATIVE); URINE KETONE NEGATIVE (NEGATIVE); URINE LEUK ESTERASE NEGATIVE (NEGATIVE); URINE NITRITE - DIPSTICK NEGATIVE (Negative); URINE PROTEIN - DIPSTICK NEGATIVE (NEG-TRACE); URINE SPECIFIC GRAVITY >=1.030; URINE UROBILINOGEN - DIPSTICK 0.2 E.U./dL (0.2)
[2017-12-10 15:40] LABS: URINE CLARITY SL CLOUDY
[2017-12-10 15:58] LABS: ALBUMIN 3.7 g/dL (3.2-5.0); ALKALINE PHOSPHATASE 93 u/l (38-126); ANION GAP 15 (6-22 (CALC)); BILIRUBIN, TOTAL 0.4 mg/dL (0.0-1.4); BUN 11 mg/dL (9-20); BUN/CREATININE RATIO 13 (12-20 (CALC)); CARBON DIOXIDE 22 mmol/l (22-30); CHLORIDE 106 mmol/l (95-108); CREATININE 0.9 mg/dL (0.7-1.3); GFR > 60 ML/MIN (>=60 (CALC)); GFR FOR AFR.AMER. > 60 ML/MIN (>=60 (CALC)); LIPASE 71 u/l (23-300); POTASSIUM 4.2 mmol/l (3.5-5.1); SGOT/AST 26 u/l (17-59); SODIUM 139 mmol/l (137-146); TOTAL PROTEIN 6.5 g/dL (6.3-8.2)
[2017-12-10] MEDS ORDERED: PEPCID20 MG PO (16:46)
[2017-12-10] MEDS ORDERED: ZOFRAN4 MG/TAB PO (16:46)
[2017-12-10 17:11] VITALS: BP 130/82
== END 2017-12-10 17:11 | disposition home or self-care (01) ==
LOC: ED 14:55
DX: K52.9 Noninfective gastroenteritis and colitis, unspecified (principal); I10 Essential (primary) hypertension; E11.9 Type 2 diabetes mellitus without complications; J44.9 Chronic obstructive pulmonary disease, unspecified; F17.210 Nicotine dependence, cigarettes, uncomplicated; Z95.5 Presence of coronary angioplasty implant and graft
CPT/HCPCS: Q9967

== ENCOUNTER 2017-12-31 18:19 | Emergency (ER) | payer MEDICARE, MEDICAID ==
[~2017-12-31] VITALS: Ht 172.7 cm; Wt 80.6 kg
[~2017-12-31 18:19] MED LIST changes: +PEPCID20 MG PO; +ZOFRAN4 MG/TAB PO
[2017-12-31 18:59] LABS: HEMATOCRIT 41.7 % (39.0-50.0); HEMOGLOBIN 13.7 g/dl (14.0-18.0); IMMATURE GRANULOCYTES 0.5 % (0.0-5.0); MEAN CELL VOLUME 90.5 fL CALC (80.0-100.0); MEAN CORPUSCULAR HGB 29.7 pG CALC (26.0-32.0); MEAN CORPUSCULAR HGB CONC 32.9 g/L CALC (32.0-36.0); NEUT# 9.32 thou/uL (1.82-7.42); RED BLOOD COUNT 4.61 mill/uL (4.70-6.10); RED CELL DISTRI WIDTH 13.4 % (11.5-15.5)
[2017-12-31 19:16] LABS: ALBUMIN 4.1 g/dL (3.2-5.0); ALKALINE PHOSPHATASE 93 u/l (38-126); ANION GAP 14 (6-22 (CALC)); BILIRUBIN, TOTAL 0.3 mg/dL (0.0-1.4); BUN 8 mg/dL (9-20); BUN/CREATININE RATIO 10 (12-20 (CALC)); CARBON DIOXIDE 26 mmol/l (22-30); CHLORIDE 106 mmol/l (95-108); CREATININE 0.9 mg/dL (0.7-1.3); GFR > 60 ML/MIN (>=60 (CALC)); GFR FOR AFR.AMER. > 60 ML/MIN (>=60 (CALC)); POTASSIUM 4.5 mmol/l (3.5-5.1); SGOT/AST 21 u/l (17-59); SODIUM 141 mmol/l (137-146); TOTAL PROTEIN 6.7 g/dL (6.3-8.2)
[2017-12-31 20:11] LABS: URINE BILIRUBIN - DIPSTICK NEGATIVE (NEGATIVE); URINE BLOOD DIPSTICK NEGATIVE (NEGATIVE); URINE COLOR YELLOW; URINE GLUCOSE - DIPSTICK NEGATIVE (NEGATIVE); URINE KETONE NEGATIVE (NEGATIVE); URINE LEUK ESTERASE NEGATIVE (NEGATIVE); URINE NITRITE - DIPSTICK NEGATIVE (Negative); URINE PH 5.5 (4.5-8.0); URINE PROTEIN - DIPSTICK NEGATIVE (NEG-TRACE); URINE UROBILINOGEN - DIPSTICK 0.2 E.U./dL (0.2)
[2017-12-31 20:14] LABS: BARBITURATES NEGATIVE (NEGATIVE); COCAINE NEGATIVE (NEGATIVE); METHADONE NEGATIVE (NEGATIVE); OXCYCODONE POSITIVE (NEGATIVE); TETRAHYDROCANNABIONOL NEGATIVE (NEGATIVE); TRICYLIC ANTIDEPRESSANTS NEGATIVE (NEGATIVE)
[2017-12-31 20:17] LABS: URINE CLARITY CLEAR
[2017-12-31] MEDS ORDERED: BACTRIM DS1 TAB PO (21:06)
[2017-12-31] MEDS ORDERED: ZOFRAN ODT4 MG PO (21:09)
[2017-12-31 21:31] VITALS: BP 128/66
== END 2017-12-31 21:18 | disposition home or self-care (01) ==
LOC: ED 18:19
PROVIDERS: Emergency Medicine
DX: K52.9 Noninfective gastroenteritis and colitis, unspecified (principal); I10 Essential (primary) hypertension; E11.9 Type 2 diabetes mellitus without complications; J44.9 Chronic obstructive pulmonary disease, unspecified; F17.210 Nicotine dependence, cigarettes, uncomplicated; Z95.5 Presence of coronary angioplasty implant and graft; Z79.84 Long term (current) use of oral hypoglycemic drugs

== ENCOUNTER 2018-01-22 10:18 | Emergency (ER) | payer MEDICARE, MEDICAID ==
[~2018-01-22] VITALS: Ht 172.7 cm; Wt 80.9 kg
[~2018-01-22 10:18] MED LIST changes: -VENTOLIN HFA PO
[2018-01-22 12:05] VITALS: BP 127/83
== END 2018-01-22 12:22 | disposition home or self-care (01) ==
LOC: ED 10:18
DX: G43.909 Migraine, unspecified, not intractable, without status migrainosus (principal); R11.0 Nausea; M54.2 Cervicalgia; F17.210 Nicotine dependence, cigarettes, uncomplicated; H53.8 Other visual disturbances

== ENCOUNTER 2018-01-25 16:33 | Emergency (ER) | payer MEDICARE, MEDICAID ==
[~2018-01-25] VITALS: Ht 172.7 cm; Wt 82.7 kg
[2018-01-25] MEDS ORDERED: DICYCLOMINE HCL10 MG PO (17:22)
[2018-01-25 17:30] VITALS: BP 133/78
== END 2018-01-25 17:30 | disposition home or self-care (01) ==
LOC: ED 16:33
DX: R51 Headache (principal); I10 Essential (primary) hypertension; F17.210 Nicotine dependence, cigarettes, uncomplicated

== ENCOUNTER 2018-01-28 07:14 | Emergency (ER) | payer MEDICARE, MEDICAID ==
[~2018-01-28] VITALS: Ht 172.7 cm; Wt 82.7 kg
[~2018-01-28 07:14] MED LIST changes: +DICYCLOMINE HCL10 MG PO
[2018-01-28 08:19] LABS: HEMATOCRIT 39.3 % (39.0-50.0); IMMATURE GRANULOCYTES 1.3 % (0.0-5.0); MEAN CELL VOLUME 89.1 fL CALC (80.0-100.0); MEAN CORPUSCULAR HGB 29.5 pG CALC (26.0-32.0); MEAN CORPUSCULAR HGB CONC 33.1 g/L CALC (32.0-36.0); NEUT# 7.71 thou/uL (1.82-7.42); RED BLOOD COUNT 4.41 mill/uL (4.70-6.10); RED CELL DISTRI WIDTH 13.6 % (11.5-15.5)
[2018-01-28 08:28] LABS: BARBITURATES NEGATIVE (NEGATIVE); COCAINE NEGATIVE (NEGATIVE); METHADONE NEGATIVE (NEGATIVE); OXCYCODONE POSITIVE (NEGATIVE); TETRAHYDROCANNABIONOL NEGATIVE (NEGATIVE); TRICYLIC ANTIDEPRESSANTS NEGATIVE (NEGATIVE)
[2018-01-28 08:37] LABS: ALBUMIN 3.7 g/dL (3.2-5.0); ALKALINE PHOSPHATASE 72 u/l (38-126); ANION GAP 14 (6-22 (CALC)); BILIRUBIN, TOTAL 0.3 mg/dL (0.0-1.4); BUN 10 mg/dL (9-20); BUN/CREATININE RATIO 12 (12-20 (CALC)); C-REACTIVE PROTEIN < 0.5 mg/dL (0-0.9); CARBON DIOXIDE 24 mmol/l (22-30); CHLORIDE 103 mmol/l (95-108); CREATININE 0.8 mg/dL (0.7-1.3); GFR > 60 ML/MIN (>=60 (CALC)); GFR FOR AFR.AMER. > 60 ML/MIN (>=60 (CALC)); SGOT/AST 14 u/l (17-59); SODIUM 137 mmol/l (137-146); TOTAL PROTEIN 6.2 g/dL (6.3-8.2)
[2018-01-28] MEDS ORDERED: FLEXERIL PO (08:51)
[2018-01-28] MEDS ORDERED: AUGMENTIN875TAB PO (08:51)
[2018-01-28] MEDS ORDERED: TORADOL PO (08:51)
[2018-01-28 09:18] VITALS: BP 159/87
== END 2018-01-28 09:20 | disposition home or self-care (01) ==
LOC: ED 07:14
PROVIDERS: Emergency Medicine
DX: R51 Headache (principal); I10 Essential (primary) hypertension; E11.9 Type 2 diabetes mellitus without complications; K21.9 Gastro-esophageal reflux disease without esophagitis; F17.200 Nicotine dependence, unspecified, uncomplicated; Z95.5 Presence of coronary angioplasty implant and graft

== ENCOUNTER 2018-01-29 11:16 | Emergency (ER) | payer MEDICARE, MEDICAID ==
[~2018-01-29] VITALS: Ht 172.7 cm; Wt 81.8 kg
[2018-01-29 12:15] VITALS: BP 174/97
== END 2018-01-29 12:14 | disposition home or self-care (01) ==
LOC: ED 11:16
DX: G89.29 Other chronic pain (principal); R51 Headache; I10 Essential (primary) hypertension; E11.9 Type 2 diabetes mellitus without complications; J44.9 Chronic obstructive pulmonary disease, unspecified; E78.00 Pure hypercholesterolemia, unspecified; F17.210 Nicotine dependence, cigarettes, uncomplicated; Z95.5 Presence of coronary angioplasty implant and graft

== ENCOUNTER 2018-02-01 23:19 | Emergency (ER) | payer MEDICARE, MEDICAID ==
[~2018-02-01] VITALS: Ht 172.7 cm; Wt 82.7 kg
[2018-02-02 00:01] LABS: HEMATOCRIT 38.6 % (39.0-50.0); HEMOGLOBIN 12.6 g/dl (14.0-18.0); IMMATURE GRANULOCYTES 1.1 % (0.0-5.0); MEAN CELL VOLUME 90.2 fL CALC (80.0-100.0); MEAN CORPUSCULAR HGB 29.4 pG CALC (26.0-32.0); MEAN CORPUSCULAR HGB CONC 32.6 g/L CALC (32.0-36.0); NEUT# 9.51 thou/uL (1.82-7.42); RED BLOOD COUNT 4.28 mill/uL (4.70-6.10); RED CELL DISTRI WIDTH 13.9 % (11.5-15.5)
[2018-02-02 00:03] LABS: URINE BILIRUBIN - DIPSTICK NEGATIVE (NEGATIVE); URINE BLOOD DIPSTICK NEGATIVE (NEGATIVE); URINE COLOR YELLOW; URINE GLUCOSE - DIPSTICK 500 mg/dL (NEGATIVE); URINE KETONE NEGATIVE (NEGATIVE); URINE LEUK ESTERASE NEGATIVE (NEGATIVE); URINE NITRITE - DIPSTICK NEGATIVE (Negative); URINE PH 5.5 (4.5-8.0); URINE PROTEIN - DIPSTICK NEGATIVE (NEG-TRACE); URINE SPECIFIC GRAVITY >=1.030; URINE UROBILINOGEN - DIPSTICK 0.2 E.U./dL (0.2)
[2018-02-02 00:12] LABS: BARBITURATES NEGATIVE (NEGATIVE); COCAINE NEGATIVE (NEGATIVE); METHADONE NEGATIVE (NEGATIVE); OXCYCODONE POSITIVE (NEGATIVE); TETRAHYDROCANNABIONOL NEGATIVE (NEGATIVE); TRICYLIC ANTIDEPRESSANTS POSITIVE (NEGATIVE)
[2018-02-02 00:23] LABS: ALBUMIN 3.7 g/dL (3.2-5.0); ALKALINE PHOSPHATASE 80 u/l (38-126); ANION GAP 15 (6-22 (CALC)); BILIRUBIN, TOTAL 0.2 mg/dL (0.0-1.4); BUN 11 mg/dL (9-20); BUN/CREATININE RATIO 11 (12-20 (CALC)); CARBON DIOXIDE 26 mmol/l (22-30); CHLORIDE 102 mmol/l (95-108); CREATININE 0.9 mg/dL (0.7-1.3); GFR > 60 ML/MIN (>=60 (CALC)); GFR FOR AFR.AMER. > 60 ML/MIN (>=60 (CALC)); POTASSIUM 4.7 mmol/l (3.5-5.1); SGOT/AST 18 u/l (17-59); SODIUM 137 mmol/l (137-146); TOTAL PROTEIN 6.1 g/dL (6.3-8.2)
[2018-02-02 01:30] VITALS: BP 137/74
== END 2018-02-02 01:30 | disposition left against medical advice (07) ==
LOC: ED 23:19 → ED-I 02-02 00:45 → ED 02-02 01:30
PROVIDERS: Emergency Medicine
DX: R51 Headache (principal); Z91.19 Patient's noncompliance with other medical treatment and regimen; F17.210 Nicotine dependence, cigarettes, uncomplicated; I10 Essential (primary) hypertension; Z95.5 Presence of coronary angioplasty implant and graft; R11.0 Nausea

== ENCOUNTER → 2018-04-03 | Outpatient (REF) | payer MEDICARE ==
[~2018-04-03] MED LIST changes: +CEPHALEXIN500 M1 PO; +ROBITUSSIN AC10 ML PO
[2018-04-03 09:49] LABS: HEMATOCRIT 43.4 % (39.0-50.0); HEMOGLOBIN 14.4 g/dl (14.0-18.0); IMMATURE GRANULOCYTES 0.6 % (0.0-5.0); MEAN CELL VOLUME 89.9 fL CALC (80.0-100.0); MEAN CORPUSCULAR HGB 29.8 pG CALC (26.0-32.0); MEAN CORPUSCULAR HGB CONC 33.2 g/L CALC (32.0-36.0); NEUT# 6.03 thou/uL (1.82-7.42); RED BLOOD COUNT 4.83 mill/uL (4.70-6.10); RED CELL DISTRI WIDTH 12.8 % (11.5-15.5)
[2018-04-03 10:44] LABS: ALKALINE PHOSPHATASE 83 u/l (38-126); BILIRUBIN, TOTAL 0.8 mg/dL (0.0-1.4); BUN 13 mg/dL (9-20); BUN/CREATININE RATIO 14 (12-20 (CALC)); CARBON DIOXIDE 26 mmol/l (22-30); CHLORIDE 103 mmol/l (95-108); CHOLESTEROL HDL RATIO 5.5 (<4.4 (CALC)); CREATININE 0.9 mg/dL (0.7-1.3); GFR > 60 ML/MIN (>=60 (CALC)); GFR FOR AFR.AMER. > 60 ML/MIN (>=60 (CALC)); HDL CHOLESTEROL 27 mg/dL (>=40); POTASSIUM 4.3 mmol/l (3.5-5.1); SGOT/AST 18 u/l (17-59); TOTAL CHOLESTEROL 149 mg/dl (0-199); TOTAL PROTEIN 6.9 g/dL (6.3-8.2); VLDL CHOLESTROL 88 mg/dl (8-62 (CALC))
[2018-04-03 11:22] LABS: ALBUMIN 4.5 g/dL (3.2-5.0); ANION GAP 16 (6-22 (CALC)); SODIUM 141 mmol/l (137-146); TRIGLYCERIDES REFLEX TO dLDL 439 mg/dl (30-149)
== END | disposition home or self-care (01) ==
LOC: LAB 09:21
PROVIDERS: ATTEND Internal Medicine Geriatric Medicine
DX: I10 Essential (primary) hypertension (principal); E78.2 Mixed hyperlipidemia; E11.9 Type 2 diabetes mellitus without complications; Z12.5 Encounter for screening for malignant neoplasm of prostate

== ENCOUNTER 2018-04-26 09:51 | Emergency (ER) | payer MEDICARE, MEDICAID ==
[~2018-04-26] VITALS: Ht 172.7 cm; Wt 70.0 kg
[~2018-04-26 09:51] MED LIST changes: -CEPHALEXIN500 M1 PO; -ROBITUSSIN AC10 ML PO
[2018-04-26 11:43] LABS: ALBUMIN 4.1 g/dL (3.2-5.0); ALKALINE PHOSPHATASE 72 u/l (38-126); ANION GAP 14 (6-22 (CALC)); BILIRUBIN, TOTAL 0.5 mg/dL (0.0-1.4); BUN 7 mg/dL (9-20); BUN/CREATININE RATIO 10 (12-20 (CALC)); CARBON DIOXIDE 23 mmol/l (22-30); CHLORIDE 108 mmol/l (95-108); CREATININE 0.8 mg/dL (0.7-1.3); GFR > 60 ML/MIN (>=60 (CALC)); GFR FOR AFR.AMER. > 60 ML/MIN (>=60 (CALC)); POTASSIUM 4.6 mmol/l (3.5-5.1); SGOT/AST 19 u/l (17-59); SODIUM 141 mmol/l (137-146); TOTAL PROTEIN 6.6 g/dL (6.3-8.2)
[2018-04-26 12:27] LABS: HEMATOCRIT 40.2 % (39.0-50.0); HEMOGLOBIN 13.2 g/dl (14.0-18.0); IMMATURE GRANULOCYTES 0.7 % (0.0-5.0); MEAN CELL VOLUME 89.1 fL CALC (80.0-100.0); MEAN CORPUSCULAR HGB 29.3 pG CALC (26.0-32.0); MEAN CORPUSCULAR HGB CONC 32.8 g/L CALC (32.0-36.0); NEUT# 7.87 thou/uL (1.82-7.42); RED BLOOD COUNT 4.51 mill/uL (4.70-6.10); RED CELL DISTRI WIDTH 12.6 % (11.5-15.5)
[2018-04-26] MEDS ORDERED: ROBITUSSIN AC10 ML PO (12:32)
[2018-04-26] MEDS ORDERED: CEPHALEXIN500 M1 PO (12:32)
[2018-04-26 12:33] VITALS: BP 140/87
== END 2018-04-26 12:38 | disposition home or self-care (01) ==
LOC: ED 09:51
PROVIDERS: Emergency Medicine
DX: J06.9 Acute upper respiratory infection, unspecified (principal); I10 Essential (primary) hypertension; E11.9 Type 2 diabetes mellitus without complications; J44.9 Chronic obstructive pulmonary disease, unspecified; F17.200 Nicotine dependence, unspecified, uncomplicated

== ENCOUNTER → 2018-05-03 | Outpatient (REF) | payer MEDICARE ==
[~2018-05-03] MED LIST changes: +CEPHALEXIN500 M1 PO; +ROBITUSSIN AC10 ML PO
== END | disposition home or self-care (01) ==
LOC: DI 10:14
PROVIDERS: ATTEND Orthopaedic Surgery
DX: M25.511 Pain in right shoulder (principal)

== ENCOUNTER 2018-06-24 07:03 | Day surgery (SDC) | payer MEDICARE, MEDICAID ==
[~2018-06-24] VITALS: Ht 172.7 cm; Wt 81.2 kg
[~2018-06-24 07:03] MED LIST changes: +CYCLOBENZAPR10 MG PO
[2018-06-24] MEDS ORDERED: PERCOCET 10/31 COMBO PO (11:17)
[2018-06-24 12:40] VITALS: BP 122/69
== END 2018-06-24 12:30 | disposition home or self-care (01) ==
LOC: ORM 07:03
PROVIDERS: ATTEND Orthopaedic Surgery
PROC: 0LQ14ZZ Repair Right Shoulder Tendon, Percutaneous Endoscopic Approach (ICD-10-PCS; principal; 2018-06-24)
PROC: 0LS14ZZ Reposition Right Shoulder Tendon, Percutaneous Endoscopic Approach (ICD-10-PCS; 2018-06-24)
PROC: 0RNJ4ZZ Release Right Shoulder Joint, Percutaneous Endoscopic Approach (ICD-10-PCS; 2018-06-24)
PROC: 3E0T3BZ Introduction of Anesthetic Agent into Peripheral Nerves and Plexi, Percutaneous Approach (ICD-10-PCS; 2018-06-24)
PROC: 0RHJ44Z Insertion of Internal Fixation Device into Right Shoulder Joint, Percutaneous Endoscopic Approach (ICD-10-PCS; 2018-06-24)
DX: S46.011A Strain of muscle(s) and tendon(s) of the rotator cuff of right shoulder, initial encounter (principal); S43.431A Superior glenoid labrum lesion of right shoulder, initial encounter; S46.211A Strain of muscle, fascia and tendon of other parts of biceps, right arm, initial encounter; M75.51 Bursitis of right shoulder; M25.811 Other specified joint disorders, right shoulder; E11.9 Type 2 diabetes mellitus without complications; I10 Essential (primary) hypertension; J44.9 Chronic obstructive pulmonary disease, unspecified; I25.10 Atherosclerotic heart disease of native coronary artery without angina pectoris; F17.210 Nicotine dependence, cigarettes, uncomplicated; W01.0XXA Fall on same level from slipping, tripping and stumbling without subsequent striking against object, initial encounter
CPT/HCPCS: C9290; J2710

== ENCOUNTER 2018-10-05 11:11 | Emergency (ER) | payer MEDICARE, MEDICAID ==
[~2018-10-05] VITALS: Ht 172.7 cm; Wt 80.0 kg
[2018-10-05 12:08] LABS: HEMATOCRIT 40.9 % (39.0-50.0); HEMOGLOBIN 13.4 g/dl (14.0-18.0); IMMATURE GRANULOCYTES 0.5 % (0.0-5.0); MEAN CELL VOLUME 89.7 fL CALC (80.0-100.0); MEAN CORPUSCULAR HGB 29.4 pG CALC (26.0-32.0); MEAN CORPUSCULAR HGB CONC 32.8 g/L CALC (32.0-36.0); NEUT# 6.46 thou/uL (1.82-7.42); RED BLOOD COUNT 4.56 mill/uL (4.70-6.10); RED CELL DISTRI WIDTH 12.9 % (11.5-15.5)
[2018-10-05 12:22] LABS: ALBUMIN 4.4 g/dL (3.2-5.0); ALKALINE PHOSPHATASE 49 u/l (38-126); ANION GAP 14 (6-22 (CALC)); BUN 13 mg/dL (9-20); BUN/CREATININE RATIO 14 (12-20 (CALC)); CARBON DIOXIDE 24 mmol/l (22-30); CHLORIDE 107 mmol/l (95-108); CREATININE 0.9 mg/dL (0.7-1.3); GFR > 60 ML/MIN (>=60 (CALC)); GFR FOR AFR.AMER. > 60 ML/MIN (>=60 (CALC)); LIPASE 114 u/l (23-300); POTASSIUM 4.6 mmol/l (3.5-5.1); SGOT/AST 24 u/l (17-59); SODIUM 140 mmol/l (137-146); TOTAL PROTEIN 7.3 g/dL (6.3-8.2)
[2018-10-05 12:23] LABS: BILIRUBIN, TOTAL 0.5 mg/dL (0.0-1.4)
[2018-10-05] MEDS ORDERED: ONDANSETRON4 MG PO (12:28)
[2018-10-05 12:50] VITALS: BP 129/61
== END 2018-10-05 12:50 | disposition home or self-care (01) ==
LOC: ED 11:11
PROVIDERS: Family Medicine
DX: K52.9 Noninfective gastroenteritis and colitis, unspecified (principal); I10 Essential (primary) hypertension; E11.9 Type 2 diabetes mellitus without complications; J44.9 Chronic obstructive pulmonary disease, unspecified; Z95.5 Presence of coronary angioplasty implant and graft; Z79.84 Long term (current) use of oral hypoglycemic drugs

== ENCOUNTER 2018-11-30 19:44 | Emergency (ER) | payer MEDICARE, MEDICAID ==
[~2018-11-30] VITALS: Ht 172.7 cm; Wt 81.0 kg
[~2018-11-30 19:44] MED LIST changes: +ONDANSETRON4 MG PO
[2018-11-30 20:38] LABS: HEMATOCRIT 39.9 % (39.0-50.0); IMMATURE GRANULOCYTES 0.4 % (0.0-5.0); MEAN CELL VOLUME 90.1 fL CALC (80.0-100.0); MEAN CORPUSCULAR HGB 29.3 pG CALC (26.0-32.0); MEAN CORPUSCULAR HGB CONC 32.6 g/L CALC (32.0-36.0); NEUT# 7.02 thou/uL (1.82-7.42); RED BLOOD COUNT 4.43 mill/uL (4.70-6.10); RED CELL DISTRI WIDTH 12.6 % (11.5-15.5)
[2018-11-30] MEDS ORDERED: PREDNISONE50 MG PO (21:15)
[2018-11-30] MEDS ORDERED: VENTOLIN HFA IN (21:15)
[2018-11-30 21:25] VITALS: BP 145/81
== END 2018-11-30 21:25 | disposition home or self-care (01) ==
LOC: ED 19:44
PROVIDERS: Family Medicine
DX: B34.9 Viral infection, unspecified (principal); F17.200 Nicotine dependence, unspecified, uncomplicated; I10 Essential (primary) hypertension; E11.9 Type 2 diabetes mellitus without complications; J44.9 Chronic obstructive pulmonary disease, unspecified; Z95.5 Presence of coronary angioplasty implant and graft

== ENCOUNTER 2019-01-24 13:09 | Inpatient (IN) | payer MEDICARE, MEDICAID ==
[~2019-01-24] VITALS: Ht 172.7 cm; Wt 77.0 kg
[2019-01-24] MEDS ORDERED: OMEPRAZOLE DR40 MG PO (14:23)
[2019-01-24] MEDS ORDERED: BUTRANS15 MCG/HR ID (14:24)
[2019-01-27] VITALS (9 sets, daily range): BP systolic 94–124; BP diastolic 50–71
[2019-01-27 07:15] LABS: BARBITURATES NEGATIVE (NEGATIVE); COCAINE NEGATIVE (NEGATIVE); METHADONE NEGATIVE (NEGATIVE); TETRAHYDROCANNABIONOL NEGATIVE (NEGATIVE); TRICYLIC ANTIDEPRESSANTS NEGATIVE (NEGATIVE)
[2019-01-27 07:16] LABS: OXCYCODONE POSITIVE (NEGATIVE)
[2019-01-28 03:51] VITALS: BP 96/53
[2019-01-28 05:02] LABS: HEMATOCRIT 35.5 % (39.0-50.0); HEMOGLOBIN 11.4 g/dl (14.0-18.0)
[2019-01-28 07:00] VITALS: BP 113/71
[2019-01-28 08:41] VITALS: BP 113/71
== END 2019-01-28 10:25 | disposition home or self-care (01) | DRG 483 ==
LOC: MS2 01-27 06:48 → OR 01-27 08:15 → MS2 01-28 10:25
PROVIDERS: ADMIT Orthopaedic Surgery; ATTEND Orthopaedic Surgery
PROC: 0RRJ00Z Replacement of Right Shoulder Joint with Reverse Ball and Socket Synthetic Substitute, Open Approach (ICD-10-PCS; principal; 2019-01-27)
PROC: 3E0T3BZ Introduction of Anesthetic Agent into Peripheral Nerves and Plexi, Percutaneous Approach (ICD-10-PCS; 2019-01-27)
DX: M75.121 Complete rotator cuff tear or rupture of right shoulder, not specified as traumatic (principal); M19.011 Primary osteoarthritis, right shoulder; I10 Essential (primary) hypertension; E11.9 Type 2 diabetes mellitus without complications; I25.10 Atherosclerotic heart disease of native coronary artery without angina pectoris; J44.9 Chronic obstructive pulmonary disease, unspecified; E78.5 Hyperlipidemia, unspecified; K21.9 Gastro-esophageal reflux disease without esophagitis; F17.210 Nicotine dependence, cigarettes, uncomplicated; I25.2 Old myocardial infarction; Z95.5 Presence of coronary angioplasty implant and graft; Z79.84 Long term (current) use of oral hypoglycemic drugs; Z01.818 Encounter for other preprocedural examination; J45.998 Other asthma; F11.10 Opioid abuse, uncomplicated; K52.9 Noninfective gastroenteritis and colitis, unspecified; G89.18 Other acute postprocedural pain
CPT/HCPCS: C9290; J0131; J2710

== ENCOUNTER 2019-03-31 15:40 | Observation (INO) | payer MEDICARE, MEDICAID ==
[~2019-03-31] VITALS: Ht 172.7 cm; Wt 76.0 kg
[~2019-03-31 15:40] MED LIST changes: +BUTRANS15 MCG/HR ID; -CYCLOBENZAPR10 MG PO; +METFORMIN500 M2 PO; -METFORMIN500 MG PO; +OMEPRAZOLE DR40 MG PO
[2019-03-31 16:32] LABS: IMMATURE GRANULOCYTES 2.4 % (0.0-5.0); MEAN CORPUSCULAR HGB 28.3 pG CALC (26.0-32.0); MEAN CORPUSCULAR HGB CONC 31.8 g/L CALC (32.0-36.0); NEUT# 14.03 thou/uL (1.82-7.42); RED BLOOD COUNT 4.99 mill/uL (4.70-6.10); RED CELL DISTRI WIDTH 13.5 % (11.5-15.5)
[2019-03-31 16:33] LABS: HEMATOCRIT 44.4 % (39.0-50.0); HEMOGLOBIN 14.1 g/dl (14.0-18.0)
[2019-03-31 16:57] LABS: ALBUMIN 4.3 g/dL (3.2-5.0); ALKALINE PHOSPHATASE 89 u/l (38-126); AMYLASE 112 u/l (30-110); ANION GAP 15 (6-22 (CALC)); BILIRUBIN, TOTAL 0.4 mg/dL (0.0-1.4); BUN 19 mg/dL (9-20); BUN/CREATININE RATIO 18 (12-20 (CALC)); CARBON DIOXIDE 25 mmol/l (22-30); CHLORIDE 104 mmol/l (95-108); CREATININE 1.1 mg/dL (0.7-1.3); GFR > 60 ML/MIN (>=60 (CALC)); GFR FOR AFR.AMER. > 60 ML/MIN (>=60 (CALC)); LIPASE 102 u/l (23-300); POTASSIUM 4.6 mmol/l (3.5-5.1); SGOT/AST 24 u/l (17-59); SODIUM 139 mmol/l (137-146); TOTAL PROTEIN 7.6 g/dL (6.3-8.2)
[2019-03-31 17:07] LABS: MYOGLOBIN 35 ng/mL (0 - 121)
[2019-03-31 19:31] VITALS: BP 113/71
[2019-03-31 21:20] LABS: URINE BILIRUBIN - DIPSTICK NEGATIVE (NEGATIVE); URINE BLOOD DIPSTICK NEGATIVE (NEGATIVE); URINE CLARITY CLEAR; URINE COLOR YELLOW; URINE GLUCOSE - DIPSTICK NEGATIVE (NEGATIVE); URINE KETONE NEGATIVE (NEGATIVE); URINE LEUK ESTERASE NEGATIVE (Negative); URINE NITRITE - DIPSTICK NEGATIVE (Negative); URINE PROTEIN - DIPSTICK NEGATIVE (NEG-TRACE); URINE SPECIFIC GRAVITY >=1.030; URINE UROBILINOGEN - DIPSTICK 0.2 E.U./dL (0.2)
[2019-03-31 23:49] VITALS: BP 103/65
[2019-04-01 03:43] VITALS: BP 95/61
[2019-04-01 07:31] VITALS: BP 121/84
[2019-04-01 09:53] LABS: HEMATOCRIT 41.3 % (39.0-50.0); HEMOGLOBIN 13.3 g/dl (14.0-18.0); MEAN CORPUSCULAR HGB 28.7 pG CALC (26.0-32.0); MEAN CORPUSCULAR HGB CONC 32.2 g/L CALC (32.0-36.0); RED BLOOD COUNT 4.64 mill/uL (4.70-6.10); RED CELL DISTRI WIDTH 13.6 % (11.5-15.5)
[2019-04-01 10:32] VITALS: BP 92/66
[2019-04-01 10:41] LABS: ANION GAP 13 (6-22 (CALC)); BUN 18 mg/dL (9-20); BUN/CREATININE RATIO 21 (12-20 (CALC)); CARBON DIOXIDE 23 mmol/l (22-30); CHLORIDE 105 mmol/l (95-108); CREATININE 0.9 mg/dL (0.7-1.3); GFR > 60 ML/MIN (>=60 (CALC)); GFR FOR AFR.AMER. > 60 ML/MIN (>=60 (CALC)); POTASSIUM 4.8 mmol/l (3.5-5.1); SODIUM 136 mmol/l (137-146)
[2019-04-01 10:44] LABS: MAGNESIUM 1.4 mg/dL (1.6-2.3)
[2019-04-01 14:38] VITALS: BP 94/59
[2019-04-01] MEDS ORDERED: ZPAK PO (15:07)
== END 2019-04-01 15:56 | disposition home or self-care (01) ==
LOC: ED 15:40 → ED-I 17:10 → ED 17:33 → MS2 17:34
PROVIDERS: Emergency Medicine; Nurse Practitioner Family; ADMIT Internal Medicine; ATTEND Internal Medicine
DX: R07.9 Chest pain, unspecified (principal); J00 Acute nasopharyngitis [common cold]; I10 Essential (primary) hypertension; E11.9 Type 2 diabetes mellitus without complications; J44.9 Chronic obstructive pulmonary disease, unspecified; K21.9 Gastro-esophageal reflux disease without esophagitis; E83.42 Hypomagnesemia; M19.90 Unspecified osteoarthritis, unspecified site; G89.4 Chronic pain syndrome; I25.2 Old myocardial infarction; F17.210 Nicotine dependence, cigarettes, uncomplicated; Z79.84 Long term (current) use of oral hypoglycemic drugs; Z95.5 Presence of coronary angioplasty implant and graft
CPT/HCPCS: G0378; J3475

== ENCOUNTER 2019-07-04 10:43 | Emergency (ER) | payer MEDICARE, MEDICAID ==
[~2019-07-04 10:43] MED LIST changes: +ZPAK PO
[2019-07-04] MEDS ORDERED: NEOMYCIN/POLYMY1 SOL AD ×2 (11:12)
[2019-07-04 11:50] VITALS: BP 116/74
== END 2019-07-04 11:50 | disposition home or self-care (01) ==
LOC: ED 10:43
DX: S00.411A Abrasion of right ear, initial encounter (principal); I10 Essential (primary) hypertension; E11.9 Type 2 diabetes mellitus without complications; J44.9 Chronic obstructive pulmonary disease, unspecified; F17.200 Nicotine dependence, unspecified, uncomplicated; X58.XXXA Exposure to other specified factors, initial encounter; Z95.5 Presence of coronary angioplasty implant and graft; Z79.84 Long term (current) use of oral hypoglycemic drugs

== ENCOUNTER 2019-08-15 14:14 | Emergency (ER) | payer MEDICARE, MEDICAID ==
[~2019-08-15] VITALS: Ht 172.7 cm; Wt 81.8 kg
[~2019-08-15 14:14] MED LIST changes: +NEOMYCIN/POLYMY1 SOL AD
[2019-08-15 14:56] LABS: HEMATOCRIT 40.8 % (39.0-50.0); HEMOGLOBIN 13.5 g/dl (14.0-18.0); MEAN CELL VOLUME 89.9 fL CALC (80.0-100.0); MEAN CORPUSCULAR HGB 29.7 pG CALC (26.0-32.0); MEAN CORPUSCULAR HGB CONC 33.1 g/dL CAL (32.0-36.0); NEUT# 12.1 thou/uL (1.82-7.42); RED BLOOD COUNT 4.54 mill/uL (4.70-6.10); RED CELL DISTRI WIDTH 12.6 % (11.5-15.5)
[2019-08-15] MEDS ORDERED: CLOPIDOGREL75 MG PO (15:03)
[2019-08-15] MEDS ORDERED: BUPROPION150 M4 PO (15:03)
[2019-08-15] MEDS ORDERED: ISOSORB MONO30 MG PO (15:03)
[2019-08-15 15:11] LABS: ALBUMIN 4.3 g/dL (3.2-5.0); ALKALINE PHOSPHATASE 83 u/l (38-126); BILIRUBIN, TOTAL 0.5 mg/dL (0.0-1.4); BUN 17 mg/dL (9-20); BUN/CREATININE RATIO 12 (12-20 (CALC)); CARBON DIOXIDE 24 mmol/l (22-30); CHLORIDE 97 mmol/l (95-108); CREATININE 1.4 mg/dL (0.7-1.3); GFR 53 ML/MIN (>=60 (CALC)); GFR FOR AFR.AMER. > 60 ML/MIN (>=60 (CALC)); SGOT/AST 24 u/l (17-59); SODIUM 133 mmol/l (137-146); TOTAL PROTEIN 7.3 g/dL (6.3-8.2)
[2019-08-15 15:17] LABS: ANION GAP 18 (6-22 (CALC))
[2019-08-15 15:19] LABS: MYOGLOBIN 53 ng/mL (0 - 121)
[2019-08-15 15:50] LABS: POTASSIUM 5.5 mmol/l (3.5-5.1)
[2019-08-15 16:55] LABS: URINE BILIRUBIN - DIPSTICK NEGATIVE (NEGATIVE); URINE BLOOD DIPSTICK NEGATIVE (NEGATIVE); URINE COLOR YELLOW; URINE GLUCOSE - DIPSTICK >=1000 mg/dL (NEGATIVE); URINE KETONE NEGATIVE (NEGATIVE); URINE LEUK ESTERASE NEGATIVE (NEGATIVE); URINE NITRITE - DIPSTICK NEGATIVE (Negative); URINE PROTEIN - DIPSTICK NEGATIVE (NEG-TRACE); URINE UROBILINOGEN - DIPSTICK 0.2 E.U./dL (0.2)
[2019-08-15] MEDS ORDERED: CEPHALEXIN500 MG PO (18:15)
[2019-08-15 18:51] VITALS: BP 113/72
== END 2019-08-15 18:51 | disposition home or self-care (01) ==
LOC: ED 14:14
PROVIDERS: Emergency Medicine
DX: R42 Dizziness and giddiness (principal); E87.5 Hyperkalemia; D72.829 Elevated white blood cell count, unspecified; I10 Essential (primary) hypertension; E11.9 Type 2 diabetes mellitus without complications; J44.9 Chronic obstructive pulmonary disease, unspecified; Z79.84 Long term (current) use of oral hypoglycemic drugs; Z95.5 Presence of coronary angioplasty implant and graft; Z20.828 Contact with and (suspected) exposure to other viral communicable diseases

== ENCOUNTER 2019-09-05 12:03 | Emergency (ER) | payer MEDICARE, MEDICAID ==
[~2019-09-05] VITALS: Ht 172.7 cm; Wt 81.3 kg
[~2019-09-05 12:03] MED LIST changes: +BUPROPION150 M4 PO; +ISOSORB MONO30 MG PO
[2019-09-05] MEDS ORDERED: CEPHALEXIN500 MG PO (13:25)
[2019-09-05] MEDS ORDERED: XTAMPZA ER13.5 MG PO (13:28)
[2019-09-05] MEDS ORDERED: OXYCODONE HCL10 MG PO (13:28)
[2019-09-05] MEDS ORDERED: CARVEDILOL12.5 MG PO (13:29)
[2019-09-05] MEDS ORDERED: JARDIANCE10 MG PO (13:31)
[2019-09-05] MEDS ORDERED: MOTRIN800 MG PO (13:32)
[2019-09-05] MEDS ORDERED: TRELEGY ELLIPTA1 AER PO (13:33)
[2019-09-05 13:42] VITALS: BP 95/63
== END 2019-09-05 13:42 | disposition home or self-care (01) ==
LOC: ED 12:03
DX: L03.114 Cellulitis of left upper limb (principal); I10 Essential (primary) hypertension; E11.9 Type 2 diabetes mellitus without complications; J44.9 Chronic obstructive pulmonary disease, unspecified; F17.210 Nicotine dependence, cigarettes, uncomplicated; Z95.5 Presence of coronary angioplasty implant and graft; Z79.84 Long term (current) use of oral hypoglycemic drugs

== ENCOUNTER 2019-11-23 15:19 | Emergency (ER) | payer OTHER, MEDICARE, MEDICAID ==
[~2019-11-23] VITALS: Ht 172.7 cm; Wt 81.8 kg
[~2019-11-23 15:19] MED LIST changes: +CARVEDILOL12.5 MG PO; +JARDIANCE10 MG PO; +OXYCODONE HCL10 MG PO; +TRELEGY ELLIPTA1 AER PO; +XTAMPZA ER13.5 MG PO
[2019-11-23 17:12] VITALS: BP 98/51
== END 2019-11-23 17:12 | disposition home or self-care (01) | DRG 552 ==
LOC: ED 15:19
DX: M54.2 Cervicalgia (principal); I10 Essential (primary) hypertension; E11.9 Type 2 diabetes mellitus without complications; J44.9 Chronic obstructive pulmonary disease, unspecified; F17.210 Nicotine dependence, cigarettes, uncomplicated; V43.52XA Car driver injured in collision with other type car in traffic accident, initial encounter; Z95.5 Presence of coronary angioplasty implant and graft; Z79.84 Long term (current) use of oral hypoglycemic drugs

== ENCOUNTER 2019-12-11 14:01 | Emergency (ER) | payer MEDICARE, MEDICAID ==
[~2019-12-11] VITALS: Ht 175.3 cm; Wt 80.0 kg
[2019-12-11] MEDS ORDERED: METFORMIN HCL1000 MG PO (14:18)
[2019-12-11] MEDS ORDERED: JARDIANCE25 MG PO (14:18)
[2019-12-11 15:04] LABS: HEMATOCRIT 35.8 % (39.0-50.0); HEMOGLOBIN 11.4 g/dl (14.0-18.0); IMMATURE GRANULOCYTES 0.9 % (0.0-5.0); MEAN CELL VOLUME 91.6 fL CALC (80.0-100.0); MEAN CORPUSCULAR HGB 29.2 pG CALC (26.0-32.0); MEAN CORPUSCULAR HGB CONC 31.8 g/dL CAL (32.0-36.0); NEUT# 6.17 thou/uL (1.82-7.42); RED BLOOD COUNT 3.91 mill/uL (4.70-6.10); RED CELL DISTRI WIDTH 13.3 % (11.5-15.5)
[2019-12-11 15:20] LABS: ALBUMIN 3.7 g/dL (3.2-5.0); ALKALINE PHOSPHATASE 52 u/l (38-126); ANION GAP 12 (6-22 (CALC)); BILIRUBIN, TOTAL 0.4 mg/dL (0.0-1.4); BUN 22 mg/dL (9-20); BUN/CREATININE RATIO 12 (12-20 (CALC)); CARBON DIOXIDE 22 mmol/l (22-30); CHLORIDE 103 mmol/l (95-108); CREATININE 1.8 mg/dL (0.7-1.3); GFR 40 ML/MIN (>=60 (CALC)); GFR FOR AFR.AMER. 48 ML/MIN (>=60 (CALC)); POTASSIUM 4.5 mmol/l (3.5-5.1); SGOT/AST 19 u/l (17-59); SODIUM 133 mmol/l (137-146); TOTAL PROTEIN 6.2 g/dL (6.3-8.2)
[2019-12-11 15:32] LABS: MYOGLOBIN 45 ng/mL (0 - 121)
[2019-12-11 16:20] VITALS: BP 77/46
== END 2019-12-11 16:20 | disposition home or self-care (01) ==
LOC: ED 14:01
PROVIDERS: Emergency Medicine
DX: I95.9 Hypotension, unspecified (principal); N28.9 Disorder of kidney and ureter, unspecified; T50.915A Adverse effect of multiple unspecified drugs, medicaments and biological substances, initial encounter; I10 Essential (primary) hypertension; E11.9 Type 2 diabetes mellitus without complications; I25.10 Atherosclerotic heart disease of native coronary artery without angina pectoris; J44.9 Chronic obstructive pulmonary disease, unspecified; F17.200 Nicotine dependence, unspecified, uncomplicated; Z95.5 Presence of coronary angioplasty implant and graft; Z79.84 Long term (current) use of oral hypoglycemic drugs

== ENCOUNTER 2020-12-17 08:00 | Observation (INO) | payer MEDICARE, MEDICAID ==
[~2020-12-17] VITALS: Ht 175.3 cm; Wt 80.0 kg
[~2020-12-17 08:00] MED LIST changes: +JARDIANCE25 MG PO
--- NOTE | 2020-12-17 08:05 | NUR ---
PT TO ROOM VIA WHEELCHAIR
[2020-12-17 08:49] LABS: HEMATOCRIT 39.4 % (39.0-50.0); HEMOGLOBIN 12.5 g/dl (14.0-18.0); IMMATURE GRANULOCYTES 0.7 % (0.0-5.0); MEAN CELL VOLUME 92.7 fL CALC (80.0-100.0); MEAN CORPUSCULAR HGB 29.4 pG CALC (26.0-32.0); MEAN CORPUSCULAR HGB CONC 31.7 g/dL CAL (32.0-36.0); NEUT# 7.46 thou/uL (1.82-7.42); RED BLOOD COUNT 4.25 mill/uL (4.70-6.10); RED CELL DISTRI WIDTH 12.9 % (11.5-15.5)
[2020-12-17 08:51] LABS: ALKALINE PHOSPHATASE 56 u/l (38-126); BILIRUBIN, TOTAL 0.5 mg/dL (0.0-1.4); BUN 15 mg/dL (9-20); BUN/CREATININE RATIO 12 (12-20 (CALC)); CARBON DIOXIDE 27 mmol/l (22-30); CHLORIDE 101 mmol/l (95-108); CREATININE 1.2 mg/dL (0.7-1.3); GFR > 60 ML/MIN (>=60 (CALC)); GFR FOR AFR.AMER. > 60 ML/MIN (>=60 (CALC)); SGOT/AST 19 u/l (17-59); SODIUM 137 mmol/l (137-146); TOTAL PROTEIN 6.5 g/dL (6.3-8.2)
[2020-12-17 08:54] LABS: ANION GAP 14 (6-22 (CALC)); POTASSIUM 4.5 mmol/l (3.5-5.1)
--- NOTE | 2020-12-17 09:34 | NUR ---
PATIENT LYING IN BED IN NO ACUTE DISTRESS. WARM BLANKET PROVIDED.
--- NOTE | 2020-12-17 09:52 | NUR ---
REPORT RECEIVED FROM RN FOR TRANSITION OF CARE.
--- NOTE | 2020-12-17 10:03 | NUR ---
PT RESTING, AWAKENS TO VOICE, DENIES ANY PAIN OR NEEDS AT THIS TIME. PT STABLE.
--- NOTE | 2020-12-17 10:19 | NUR ---
VS ASSESSED, PT STABLE, DENIES ANY NEEDS AT THIS TIME. WILL CONTINUE TO MONITOR.
--- NOTE | 2020-12-17 11:03 | NUR ---
PT RESTING, DENIES NEEDS, UPDATED ON WAIT TIME. PT STABLE.
--- NOTE | 2020-12-17 11:33 | NUR ---
PT RESTING WITH EYES CLOSED, CALL LIGHT IN REACH. WILL CONTINUE TO MONITOR.
--- NOTE | 2020-12-17 12:04 | NUR ---
PT AMBULATED TO ED BATHROOM WITH STANDBY ASSIST. PT DENIES DIZZINESS, SOB OR PAIN AT THIS TIME. PT STABLE.
--- NOTE | 2020-12-17 13:00 | NUR ---
PT RESTING, DENIES NEEDS. STABLE, WILL CONTINUE TO MONITOR.
--- NOTE | 2020-12-17 14:00 | NUR ---
PT APPEARS ASLEEP. CALL LIGHT IN REACH. WILL CONTINUE TO MONITOR.
--- NOTE | 2020-12-17 15:00 | NUR ---
PT RESTING ON ED BED, EYES CLOSED. PT STABLE.
--- NOTE | 2020-12-17 15:55 | NUR ---
SUE BORREGO RECEIVED SBAR REPORT
--- NOTE | 2020-12-17 16:12 | NUR ---
REPORT RECEIVED FROM TOM ROMAN.
--- NOTE | 2020-12-17 16:20 | NUR ---
PT TAKEN VIA STRETCHER TO MED/SURG ROOM 268, REPORT GIVEN TO SUE BORREGO, PERSONAL BELONGINGS AND PAPERWORK HANDED OFF. PT IN STABLE CONDITION.
[2020-12-17 16:22] VITALS: BP 131/65
--- NOTE | 2020-12-17 16:22 | NUR ---
PT ARRIVED TO MED/SURG ROOM 268 IN STABLE CONDITION VIA STRETCHER ACCOMPANIED BY ER NURSE;PT ASSISTED TO BEDSIDE WITH A STEADY GAIT;PT REPORTS SUDDEN/SHARP CHEST PAIN 30 MINS MILL TENDER;PT DENIES ANY CURRENT PAIN OR DISCOMFORTS,PAIN SCALE AND REPORTING EDUCATED;WT AND VS OBTAINED;RESPIRATIONS EVEN AND UNLABORED ON RA,CLEAR LUNG SOUNDS;NON-PRODUCTIVE COUGH;ABDOMEN SOFT ON PALPATION AND ACTIVE IN ALL 4 QUADRANTS,LAST BM 12/16/20;STRONG PEDAL PULSES;SKIN INTACT;TELE MONITORING IN PLACE;#20G TO RAC FLUSHED AND PATENT,SITE APPEARS HEALTHY;ALLERGY BAND APPLIED TO RIGHT ARM;ACCUCHECK 155, PT TO BE COVERED WITH SLIDING SCALE INSULIN PER ORDER;PT DENIES ANY ADDITIONAL NEEDS AND IS ENCOURAGED TO CALL FOR ASSISTANCE IF NEEDED;FALL PRECAUTIONS IN PLACE WITH BED IN THE LOWEST POSITION AND CALL LIGHT IN REACH;WILL CONTINUE TO MONITOR
--- NOTE | 2020-12-17 17:05 | NUR ---
PT RESTING IN SEMI FOWLERS POSITION;RESPIRATIONS EVEN AND UNLABORED ON RA;PT DENIES ANY CURRENT PAIN OR NEEDS;TELE MONITORING IN PLACE;IV SITE PATENT;ADDITIONAL BLANKET PROVIDED PER REQUEST;PT ENCOURAGED TO CALL FOR ASSISTANCE IF NEEDED;CALL LIGHT IN REACH;WILL CONTINUE TO MONITOR
--- NOTE | 2020-12-17 18:09 | NUR ---
LAB AT BEDSIDE
[2020-12-17 19:00] VITALS: BP 110/73
--- NOTE | 2020-12-17 20:00 | NUR ---
PHYSICAL ASSESMENT COMPLETE. PT CURRENTLY DENIES PAIN OR DISCOMFORT. SCHEDULED MEDICATIONS AND PRN MEDICATION ADMINISTERED, SEE E-MAR. PT DENIES ANY NEEDS AT THIS TIME. PLAN OF CARE REVIEWED, PT DENIES QUESTIONS, VERBALIZES UNDERSTANDING. ITEMS WITHIN REACH, BED LOCKED IN LOW POSITION W/ BEDRAILS UP X2. CALL COLLIER WITHIN REACH, AGREES TO CALL PRN.
[2020-12-18] VITALS: BP 152/99
--- NOTE | 2020-12-18 | NUR ---
PT LAYING IN BED WITH EYES CLOSED, APPEARS TO BE SLEEPING, APPEARS COMFORTABLE AND IN NO DISTRESS. RESPIRATIONS REGULAR AND UNLABORED. ITEMS REMAIN WITHIN REACH, CALL COLLIER REMAINS WITHIN REACH. BED REMAINS LOCKED AND IN LOW POSITION WITH BEDRAILS UP X2. WILL CONTINUE TO MONITOR.
[2020-12-18 04:00] VITALS: BP 141/93
--- NOTE | 2020-12-18 04:00 | NUR ---
PT RESTING IN BED, NO SIGNS OF DISTRESS NOTED, RESP EVEN AND UNLABORED. PT VOICES NO NEEDS OR COMPLAINTS AT THIS TIME. CALL LIGHT IN REACH, CONTINUE TO MONITOR.
[2020-12-18 05:09] LABS: HEMOGLOBIN 13.8 g/dl (14.0-18.0); MEAN CELL VOLUME 92.1 fL CALC (80.0-100.0); MEAN CORPUSCULAR HGB 29.6 pG CALC (26.0-32.0); MEAN CORPUSCULAR HGB CONC 32.1 g/dL CAL (32.0-36.0); RED BLOOD COUNT 4.67 mill/uL (4.70-6.10); RED CELL DISTRI WIDTH 12.9 % (11.5-15.5)
[2020-12-18 05:17] LABS: BUN 16 mg/dL (9-20); BUN/CREATININE RATIO 15 (12-20 (CALC)); CALCULATED LDLCHOLESTEROL 71 mg/dL (62-129 (CALC)); CHLORIDE 107 mmol/l (95-108); CHOLESTEROL HDL RATIO 8.2 (<4.4 (CALC)); GFR > 60 ML/MIN (>=60 (CALC)); GFR FOR AFR.AMER. > 60 ML/MIN (>=60 (CALC)); HDL CHOLESTEROL 22 mg/dL (>=40); MAGNESIUM 1.3 mg/dL (1.6-2.3); POTASSIUM 4.8 mmol/l (3.5-5.1); SODIUM 138 mmol/l (137-146); TOTAL CHOLESTEROL 182 mg/dl (0-199); VLDL CHOLESTROL 89 mg/dl (8-62 (CALC))
[2020-12-18 05:30] LABS: ANION GAP 15 (6-22 (CALC)); CARBON DIOXIDE 21 mmol/l (22-30); TOTAL TRIGLYCERIDES 444 mg/dl (30-149)
[2020-12-18 07:53] VITALS: BP 144/73
--- NOTE | 2020-12-18 09:00 | NUR ---
PT IS ALERT AND ORIENTED X 3. LUNGS CLEAR, RA. ABDOMEN SOFT, NONTENDER, BM YESTERDAY. PT DENIES CHEST PAIN OR SHORTNESS OF BREATH. 1 UNIT INSULIN PROVIDED FOR BS 177.
[2020-12-18 10:51] VITALS: BP 125/84
--- NOTE | 2020-12-18 11:00 | NUR ---
PT HAS BEEN DISCHARGED TO HOME. IV REMOVED, TELE REMOVED, PT VERBALIZED UNDERSTANDING OF DC INSTRUCTIONS, AMBULATES TO LOBBY WITH STEADY GAIT.
== END 2020-12-18 10:51 | disposition home or self-care (01) ==
LOC: ED 08:00 → ED-I 08:56 → ED 08:56 → ED-I 09:16 → ED 09:29 → MS2 09:30
PROVIDERS: Family Medicine; Nurse Practitioner; ADMIT Hospitalist; ATTEND Hospitalist
DX: R07.9 Chest pain, unspecified (principal); I10 Essential (primary) hypertension; E11.9 Type 2 diabetes mellitus without complications; I25.10 Atherosclerotic heart disease of native coronary artery without angina pectoris; J44.9 Chronic obstructive pulmonary disease, unspecified; K21.9 Gastro-esophageal reflux disease without esophagitis; E78.00 Pure hypercholesterolemia, unspecified; G89.29 Other chronic pain; F17.210 Nicotine dependence, cigarettes, uncomplicated; I25.2 Old myocardial infarction; Z95.5 Presence of coronary angioplasty implant and graft; Z79.84 Long term (current) use of oral hypoglycemic drugs; Z20.822 Contact with and (suspected) exposure to COVID-19
CPT/HCPCS: J1650

== ENCOUNTER 2021-02-14 14:21 | Emergency (ER) | payer MEDICARE, MEDICAID ==
[~2021-02-14] VITALS: Ht 175.3 cm; Wt 80.0 kg
[2021-02-14 15:03] LABS: HEMATOCRIT 41.8 % (39.0-50.0); HEMOGLOBIN 13.1 g/dl (14.0-18.0); IMMATURE GRANULOCYTES 0.2 % (0.0-5.0); MEAN CELL VOLUME 91.1 fL CALC (80.0-100.0); MEAN CORPUSCULAR HGB 28.5 pG CALC (26.0-32.0); MEAN CORPUSCULAR HGB CONC 31.3 g/dL CAL (32.0-36.0); NEUT# 10.58 thou/uL (1.82-7.42); RED BLOOD COUNT 4.59 mill/uL (4.70-6.10); RED CELL DISTRI WIDTH 12.8 % (11.5-15.5)
[2021-02-14 15:18] LABS: ALBUMIN 4.1 g/dL (3.2-5.0); ALKALINE PHOSPHATASE 57 u/l (38-126); BILIRUBIN, TOTAL 0.5 mg/dL (0.0-1.4); BUN 13 mg/dL (9-20); BUN/CREATININE RATIO 10 (12-20 (CALC)); CHLORIDE 102 mmol/l (95-108); CREATININE 1.4 mg/dL (0.7-1.3); GFR 53 ML/MIN (>=60 (CALC)); GFR FOR AFR.AMER. > 60 ML/MIN (>=60 (CALC)); SODIUM 139 mmol/l (137-146); TOTAL PROTEIN 7.3 g/dL (6.3-8.2)
[2021-02-14 15:20] LABS: ANION GAP 7 (6-22 (CALC)); CARBON DIOXIDE 34 mmol/l (22-30); SGOT/AST 127 u/l (17-59)
[2021-02-15 07:26] VITALS: BP 90/59
== END 2021-02-14 15:20 | disposition short-term general hospital (02) ==
LOC: ED 14:21
PROVIDERS: Family Medicine
DX: I21.3 ST elevation (STEMI) myocardial infarction of unspecified site (principal); I10 Essential (primary) hypertension; E11.9 Type 2 diabetes mellitus without complications; J44.9 Chronic obstructive pulmonary disease, unspecified; I25.2 Old myocardial infarction; F17.200 Nicotine dependence, unspecified, uncomplicated; Z79.84 Long term (current) use of oral hypoglycemic drugs; Z95.5 Presence of coronary angioplasty implant and graft; Z79.02 Long term (current) use of antithrombotics/antiplatelets; Z20.822 Contact with and (suspected) exposure to COVID-19
CPT/HCPCS: J1644

== ENCOUNTER 2021-02-19 07:31 | Emergency (ER) | payer MEDICARE, MEDICAID ==
[~2021-02-19] VITALS: Ht 175.3 cm; Wt 79.0 kg
[2021-02-19 07:51] LABS: HEMATOCRIT 37.1 % (39.0-50.0); HEMOGLOBIN 11.5 g/dl (14.0-18.0); IMMATURE GRANULOCYTES 0.3 % (0.0-5.0); MEAN CELL VOLUME 92.8 fL CALC (80.0-100.0); MEAN CORPUSCULAR HGB 28.8 pG CALC (26.0-32.0); NEUT# 9.55 thou/uL (1.82-7.42)
[2021-02-19 08:11] LABS: ALBUMIN 3.6 g/dL (3.2-5.0); ALKALINE PHOSPHATASE 62 u/l (38-126); ANION GAP 8 (6-22 (CALC)); BILIRUBIN, TOTAL 0.5 mg/dL (0.0-1.4); BUN 17 mg/dL (9-20); BUN/CREATININE RATIO 13 (12-20 (CALC)); CARBON DIOXIDE 28 mmol/l (22-30); CHLORIDE 105 mmol/l (95-108); CREATININE 1.3 mg/dL (0.7-1.3); GFR 58 ML/MIN (>=60 (CALC)); GFR FOR AFR.AMER. > 60 ML/MIN (>=60 (CALC)); LIPASE 96 u/l (23-300); MAGNESIUM 1.5 mg/dL (1.6-2.3); POTASSIUM 4.1 mmol/l (3.5-5.1); SODIUM 137 mmol/l (137-146); TOTAL PROTEIN 6.9 g/dL (6.3-8.2)
[2021-02-19 08:12] LABS: SGOT/AST 31 u/l (17-59)
[2021-02-19 08:15] VITALS: BP 95/50
[2021-02-19 08:22] LABS: ACT PARTIAL THROMBO TIME 25.6 SECONDS (20.0-32.5); PROTHROMBIN TIME 10.1 SECONDS (9.0-12.5)
== END 2021-02-19 08:16 | disposition short-term general hospital (02) ==
LOC: ED 07:31
DX: I21.3 ST elevation (STEMI) myocardial infarction of unspecified site (principal); I10 Essential (primary) hypertension; E11.9 Type 2 diabetes mellitus without complications; J44.9 Chronic obstructive pulmonary disease, unspecified; E78.00 Pure hypercholesterolemia, unspecified; F17.200 Nicotine dependence, unspecified, uncomplicated; I25.2 Old myocardial infarction; Z95.5 Presence of coronary angioplasty implant and graft; Z79.84 Long term (current) use of oral hypoglycemic drugs
CPT/HCPCS: J1644

== ENCOUNTER 2021-05-15 11:35 | Emergency (ER) | payer MEDICARE, MEDICAID ==
[2021-05-15] VITALS (31 sets, daily range): BP systolic 79–116; BP diastolic 38–68
[~2021-05-15] VITALS: Ht 175.3 cm; Wt 76.8 kg
[2021-05-15 12:53] LABS: HEMATOCRIT 41.2 % (39.0-50.0); HEMOGLOBIN 12.9 g/dl (14.0-18.0); IMMATURE GRANULOCYTES 0.8 % (0.0-5.0); MEAN CELL VOLUME 87.3 fL CALC (80.0-100.0); MEAN CORPUSCULAR HGB 27.3 pG CALC (26.0-32.0); MEAN CORPUSCULAR HGB CONC 31.3 g/dL CAL (32.0-36.0); NEUT# 5.82 thou/uL (1.82-7.42); RED BLOOD COUNT 4.72 mill/uL (4.70-6.10); RED CELL DISTRI WIDTH 14.5 % (11.5-15.5)
[2021-05-15 13:11] LABS: ALBUMIN 3.9 g/dL (3.2-5.0); BILIRUBIN, TOTAL 0.3 mg/dL (0.0-1.4); CREATININE 1.7 mg/dL (0.7-1.3); POTASSIUM 4.1 mmol/l (3.5-5.1); TOTAL PROTEIN 7.3 g/dL (6.3-8.2)
[2021-05-15 13:14] LABS: ACT PARTIAL THROMBO TIME 24.3 SECONDS (20.0-32.5); PROTHROMBIN TIME 10.3 SECONDS (9.0-12.5)
== END 2021-05-15 22:33 ==
LOC: ED 11:35
PROVIDERS: Emergency Medicine
DX: K92.1 Melena (principal); I10 Essential (primary) hypertension; E11.9 Type 2 diabetes mellitus without complications; J44.9 Chronic obstructive pulmonary disease, unspecified; E78.00 Pure hypercholesterolemia, unspecified; I25.2 Old myocardial infarction; F17.200 Nicotine dependence, unspecified, uncomplicated; Z95.5 Presence of coronary angioplasty implant and graft; Z79.02 Long term (current) use of antithrombotics/antiplatelets; Z79.84 Long term (current) use of oral hypoglycemic drugs
CPT/HCPCS: J2354; S0164

== ENCOUNTER 2021-09-19 10:31 | Emergency (ER) | payer MEDICARE, MEDICAID ==
[2021-09-19] VITALS (8 sets, daily range): BP systolic 114–138; BP diastolic 60–76
[~2021-09-19] VITALS: Ht 175.3 cm; Wt 75.4 kg
[2021-09-19 10:54] LABS: HEMOGLOBIN 12.3 g/dl (14.0-18.0); IMMATURE GRANULOCYTES 0.2 % (0.0-5.0); MEAN CORPUSCULAR HGB 24.3 pG CALC (26.0-32.0); NEUT# 6.52 thou/uL (1.82-7.42); RED BLOOD COUNT 5.06 mill/uL (4.70-6.10); RED CELL DISTRI WIDTH 19.7 % (11.5-15.5)
[2021-09-19 11:26] LABS: ALBUMIN 4.3 g/dL (3.2-5.0); ALKALINE PHOSPHATASE 62 u/l (38-126); ANION GAP 15 (6-22 (CALC)); BUN 18 mg/dL (9-20); BUN/CREATININE RATIO 13 (12-20 (CALC)); CARBON DIOXIDE 22 mmol/l (22-30); CHLORIDE 103 mmol/l (95-108); CREATININE 1.4 mg/dL (0.7-1.3); GFR FOR AFR.AMER. > 60 ML/MIN (>=60 (CALC)); GFR OTHER RACES 53 ML/MIN (>=60 (CALC)); LIPASE 50 u/l (23-300); POTASSIUM 4.3 mmol/l (3.5-5.1); SGOT/AST 22 u/l (17-59); SODIUM 137 mmol/l (137-146); TOTAL PROTEIN 7.5 g/dL (6.3-8.2)
[2021-09-19 11:30] LABS: BILIRUBIN, TOTAL 0.5 mg/dL (0.0-1.4)
[2021-09-19 12:03] LABS: URINE BILIRUBIN - DIPSTICK NEGATIVE (NEGATIVE); URINE BLOOD DIPSTICK NEGATIVE (NEGATIVE); URINE COLOR YELLOW; URINE GLUCOSE - DIPSTICK >=1000 mg/dL (NEGATIVE); URINE KETONE TRACE mg/dL (NEGATIVE); URINE LEUK ESTERASE NEGATIVE (NEGATIVE); URINE PH 5.5 (4.5-8.0); URINE PROTEIN - DIPSTICK NEGATIVE (NEG-TRACE); URINE SPECIFIC GRAVITY 1.025; URINE UROBILINOGEN - DIPSTICK 0.2 E.U./dL (0.2)
[2021-09-19 12:14] LABS: URINE NITRITE - DIPSTICK NEGATIVE (Negative)
[2021-09-19] MEDS ORDERED: HYOSCYAMINE0.125 M3 PO (12:35)
[2021-09-19] MEDS ORDERED: PROMETHAZINE HY25 M1 PO (12:35)
== END 2021-09-19 12:44 | disposition home or self-care (01) ==
LOC: ED 10:31
PROVIDERS: Family Medicine
DX: R10.31 Right lower quadrant pain (principal); I10 Essential (primary) hypertension; E11.9 Type 2 diabetes mellitus without complications; J44.9 Chronic obstructive pulmonary disease, unspecified; E78.00 Pure hypercholesterolemia, unspecified; I25.2 Old myocardial infarction; F17.200 Nicotine dependence, unspecified, uncomplicated; Z95.5 Presence of coronary angioplasty implant and graft; Z20.822 Contact with and (suspected) exposure to COVID-19; Z79.84 Long term (current) use of oral hypoglycemic drugs
CPT/HCPCS: Q9967

== ENCOUNTER 2022-09-14 01:31 | Emergency (ER) | payer MEDICARE, MEDICAID ==
[~2022-09-14] VITALS: Ht 175.3 cm; Wt 74.0 kg
[2022-09-14] VITALS (21 sets, daily range): BP systolic 103–153; BP diastolic 59–96
[~2022-09-14 01:31] MED LIST changes: +HYOSCYAMINE0.125 M3 PO; +PROMETHAZINE HY25 M1 PO
[2022-09-14 02:16] LABS: BASO% 0.8 % (0-3); EOS% 3.8 % (0-8); HEMOGLOBIN 12.8 g/dl (14.0-18.0); IMMATURE GRANULOCYTES 0.5 % (0.0-5.0); MEAN CELL VOLUME 86.5 fL CALC (80.0-100.0); MEAN CORPUSCULAR HGB CONC 31.2 g/dL CAL (32.0-36.0); MONO% 9.2 % (2-13); NEUT# 6.36 thou/uL (1.82-7.42); NEUT% 61.7 % (42-76); RED BLOOD COUNT 4.74 mill/uL (4.70-6.10)
[2022-09-14 02:23] LABS: ALBUMIN 3.7 g/dL (3.2-5.0); ALKALINE PHOSPHATASE 57 u/l (38-126); ANION GAP 12 (6-22 (CALC)); BILIRUBIN, TOTAL 0.5 mg/dL (0.2-1.3); BUN 8 mg/dL (9-20); BUN/CREATININE RATIO 8 (12-20 (CALC)); CARBON DIOXIDE 23 mmol/l (22-30); CHLORIDE 105 mmol/l (95-108); GFR FOR AFR.AMER. > 60 ML/MIN (>=60 (CALC)); GFR OTHER RACES > 60 ML/MIN (>=60 (CALC)); SGOT/AST 22 u/l (17-59); SODIUM 136 mmol/l (137-146); TOTAL PROTEIN 6.6 g/dL (6.3-8.2)
[2022-09-14 02:25] LABS: ACT PARTIAL THROMBO TIME 25.1 SECONDS (20.0-32.5); INTERNATIONAL NORMALIZED RATIO 1.1 RATIO (0.7-1.3); PROTHROMBIN TIME 10.6 SECONDS (9.0-12.5)
[2022-09-14 05:38] LABS: URINE BILIRUBIN - DIPSTICK NEGATIVE (NEGATIVE); URINE COLOR YELLOW; URINE GLUCOSE - DIPSTICK >=1000 mg/dL (NEGATIVE); URINE KETONE Negative (NEGATIVE)
[2022-09-14 05:39] LABS: URINE BLOOD DIPSTICK NEGATIVE (NEGATIVE); URINE LEUK ESTERASE NEGATIVE (NEGATIVE); URINE NITRITE - DIPSTICK NEGATIVE (Negative); URINE PROTEIN - DIPSTICK NEGATIVE (NEG-TRACE); URINE UROBILINOGEN - DIPSTICK 0.2 E.U./dL (0.2)
== END 2022-09-14 06:50 | disposition home or self-care (01) ==
LOC: ED 01:31
PROVIDERS: Family Medicine
DX: R53.1 Weakness (principal); I10 Essential (primary) hypertension; E11.9 Type 2 diabetes mellitus without complications; E78.00 Pure hypercholesterolemia, unspecified; J44.9 Chronic obstructive pulmonary disease, unspecified; I25.2 Old myocardial infarction; F17.200 Nicotine dependence, unspecified, uncomplicated; Z95.5 Presence of coronary angioplasty implant and graft; Z86.73 Personal history of transient ischemic attack (TIA), and cerebral infarction without residual deficits; Z79.84 Long term (current) use of oral hypoglycemic drugs

== ENCOUNTER 2022-09-14 17:43 | Inpatient (IN) | payer MEDICARE, MEDICAID ==
[~2022-09-14] VITALS: Ht 152.4 cm; Wt 70.7 kg
[2022-09-14] VITALS (13 sets, daily range): BP systolic 123–164; BP diastolic 78–99
--- NOTE | 2022-09-14 18:11 | NUR ---
PATIENT PRESENTS WITH NUMBNESS IN THE RIGHT LOWER EXTREMITY.
[2022-09-14 18:13] LABS: BASO% 0.4 % (0-3); EOS% 1.8 % (0-8); HEMATOCRIT 46.8 % (39.0-50.0); HEMOGLOBIN 14.4 g/dl (14.0-18.0); IMMATURE GRANULOCYTES 0.2 % (0.0-5.0); LYMPH% 14.2 % (15-41); MEAN CELL VOLUME 85.2 fL CALC (80.0-100.0); MEAN CORPUSCULAR HGB 26.2 pG CALC (26.0-32.0); MEAN CORPUSCULAR HGB CONC 30.8 g/dL CAL (32.0-36.0); MONO% 5.7 % (2-13); NEUT# 10.21 thou/uL (1.82-7.42); NEUT% 77.7 % (42-76); RED BLOOD COUNT 5.49 mill/uL (4.70-6.10); RED CELL DISTRI WIDTH 15.9 % (11.5-15.5)
[2022-09-14 18:19] LABS: ALBUMIN 4.3 g/dL (3.2-5.0); ALKALINE PHOSPHATASE 76 u/l (38-126); ANION GAP 14 (6-22 (CALC)); BILIRUBIN, TOTAL 0.6 mg/dL (0.2-1.3); BUN 8 mg/dL (9-20); BUN/CREATININE RATIO 8 (12-20 (CALC)); CARBON DIOXIDE 23 mmol/l (22-30); CHLORIDE 105 mmol/l (95-108); GFR FOR AFR.AMER. > 60 ML/MIN (>=60 (CALC)); GFR OTHER RACES > 60 ML/MIN (>=60 (CALC)); POTASSIUM 4.3 mmol/l (3.5-5.1); SGOT/AST 29 u/l (17-59); SODIUM 137 mmol/l (137-146); TOTAL PROTEIN 7.8 g/dL (6.3-8.2)
--- NOTE | 2022-09-14 19:00 | NUR ---
ASSUMED CARE OF PT, PT SUPINE IN BED, AIRWAY PATENT, RESP EVEN AND NON LABORED, SKIN P/W/D. VSS. PT TALKING ON CELL PHONE NO ACUTE DISTRESS NOTED.
--- NOTE | 2022-09-14 21:08 | NUR ---
MED RECONCILIATION DONE AT THIS TIME. RIGHT LEG NOTED TO BE HANGING PARTIALLY OFF OF THE BED, I WAS WALKING OUT OF THE ROOM I NOTICED MOVEMENT TO RIGHT LOWER EXTREMITY.
--- NOTE | 2022-09-14 21:15 | NUR ---
UPON ENTRANCE TO ROOM, PT REQUESTING HELP TO MOVE RIGHT LOWER EXTREMITY. NO EFFORT OF MOVEMENT NOTED WHEN I LIFTED HIS RIGHT LEG TO MOVE IT. POSTIVE PEDAL PULSES NOTED.
--- NOTE | 2022-09-14 21:18 | NUR ---
PT TAKEN TO MED SURG ROOM 270 VIA EMS STRETCHER IN STABLE CONDITION.
--- NOTE | 2022-09-14 21:30 | NUR ---
REPORT RECEIVED FROM ZORAIDA IN ER. PATIENT ARRIVED TO ROOM 270 AT 2120 VIA STRETCHER. PATIENT ALERT AND ORIENTED AND ABLE TO MAKE NEEDS KNOWN. PATIENT ASSISTED TO BED BY 2 STAFF. ORIENTED TO CALL LIGHT AND BED CONTROLS. ASSESSMENT COMPLETED. SKIN INTACT. UNABLE TO MOVE RIGHT LOWER EXTREMITY. C/O PAIN TO LOWER BACK AND BILATERAL HIPS. PATIENT REPOSITIONED IN BED FOR COMFORT AND MEDICATED FOR PAIN. CALL LIGHT WITHIN REACH.
--- NOTE | 2022-09-14 23:18 | NUR ---
PATIENT AWAKE IN BED WATCHING TELEVISION. VITAL SIGNS TAKEN. DENIES PAIN OR DISCOMFORT. RESPIRATIONS EVEN AND UNLABORED ON ROOM AIR. CALL LIGHT WITHIN REACH.
[2022-09-15] VITALS (21 sets, daily range): BP systolic 94–130; BP diastolic 62–83
--- NOTE | 2022-09-15 02:50 | NUR ---
PATIENT ASLEEP IN BED. RESPIRATIONS EVEN AND UNLABORED ON ROOM AIR. NO SIGNS OF DISTRESS NOTED. CALL LIGHT WITHIN REACH.
[2022-09-15 05:08] LABS: HEMATOCRIT 42.4 % (39.0-50.0); HEMOGLOBIN 13.2 g/dl (14.0-18.0); MEAN CELL VOLUME 85.1 fL CALC (80.0-100.0); MEAN CORPUSCULAR HGB 26.5 pG CALC (26.0-32.0); MEAN CORPUSCULAR HGB CONC 31.1 g/dL CAL (32.0-36.0); RED BLOOD COUNT 4.98 mill/uL (4.70-6.10); RED CELL DISTRI WIDTH 16.3 % (11.5-15.5)
[2022-09-15 05:21] LABS: ANION GAP 9 (6-22 (CALC)); BUN 10 mg/dL (9-20); BUN/CREATININE RATIO 10 (12-20 (CALC)); CALCULATED LDLCHOLESTEROL 119 mg/dL (62-129 (CALC)); CARBON DIOXIDE 26 mmol/l (22-30); CHLORIDE 105 mmol/l (95-108); CHOLESTEROL HDL RATIO 6.6 (<4.4 (CALC)); GFR FOR AFR.AMER. > 60 ML/MIN (>=60 (CALC)); GFR OTHER RACES > 60 ML/MIN (>=60 (CALC)); HDL CHOLESTEROL 28 mg/dL (39.0-59.0); MAGNESIUM 1.6 mg/dL (1.6-2.3); POTASSIUM 4.1 mmol/l (3.5-5.1); SODIUM 137 mmol/l (137-146); TOTAL CHOLESTEROL 184 mg/dl (0-199); TOTAL TRIGLYCERIDES 187 mg/dl (0-149); VLDL CHOLESTROL 37 mg/dl (8-62 (CALC))
--- NOTE | 2022-09-15 08:00 | NUR ---
GOT REPORT FROM HUMAN SERVICES PROFESSIONAL NURSE. PATIENT ASSESSED, AOX4. NIH COMPLETED. PATIENT DENIES ANY CHANGES SINCE PATIENT HAS BEEN IN THE HOSPITAL. PATIENT DOES COMPLAIN OF THE NUMB/ TINGLING IN HIS RIGHT LEG TO FOOT THAT COMES AND GOES. PATIENT HAS BED ALARM ON, CALL LIGHT AND BEDSIDE TABLE WITHIN REACH. ADVISED TO CALL IF NEEDING ANYTHING. PATIENT VERBALIZED UNDERSTANDING.
--- NOTE | 2022-09-15 08:24 | NUR ---
PATIENT WENT TO MRI FOR IMAGING.
--- NOTE | 2022-09-15 12:00 | NUR ---
PATIENT IN BED RESTING WATCHING TV. NO COMPLAINTS AT THIS TIME. PATIENT HAS CALL LIGHT AND BEDSIDE TABLE WITH IN REACH. PATIENT ADVISED TO CALL IF NEEDING ANYTHING. PATIENT VERBALIZED UNDERSTANDING.
--- NOTE | 2022-09-15 16:00 | NUR ---
PATIENT RESTING IN BED. PATIENT NIH COMPLETED. NO COMPLAINTS AT THIS TIME. CALL LIGHT AND BEDSIDE TABLE WITH IN REACH. ADVISED TO CALL IF NEEDING ANYTHING. PATIENT VERBALIZED UNDERSTANDING.
--- NOTE | 2022-09-15 19:18 | NUR ---
patient blood sugar read 137 nurse aware
--- NOTE | 2022-09-15 19:30 | NUR ---
awake. denies acute distress. see nih scale. pvc monitor shows sinus rhythm. rac saline lock in place. po fluids taken well. no choking. has not voided as of yet. fall precautions cont.
--- NOTE | 2022-09-15 20:30 | NUR ---
medicted for pain as requested.
[2022-09-16] VITALS (25 sets, daily range): BP systolic 83–131; BP diastolic 49–88
--- NOTE | 2022-09-16 00:01 | NUR ---
playground monitor shows sinus rhythm. no apparent distress.
--- NOTE | 2022-09-16 04:00 | NUR ---
HYDRO SPRAYER OPERATOR SHOWS SINUS RHYTHM. NO DISTRESS.
--- NOTE | 2022-09-16 05:27 | NUR ---
lab here. blood drawn.
--- NOTE | 2022-09-16 08:00 | NUR ---
Patient sitting up in bed. States he is having pain 8/10 in low back, requesting oxy. Patient medicated per emar. Lungs clear to ascultation. SR on the monitor. Bed in low position. Call light next to R hand. Will continue to monitor.
--- NOTE | 2022-09-16 10:51 | NUR ---
Patient sitting up in bed. Patient c/o pain behind R eye. Provider made aware. SR on the monitor. Call light within reach. NAD noted. Will continue to monitor.
--- NOTE | 2022-09-16 12:15 | NUR ---
Patient lying in bed. Medicated according to emar for R eye pain. Patient states morphine offered relief. SR on the monitor. NAD noted. Will continue to monitor.
--- NOTE | 2022-09-16 12:17 | NUR ---
Patient appears to be resting with eyes closed. SR on the monitor. NAD noted. Will continue to monitor.
--- NOTE | 2022-09-16 14:07 | NUR ---
Patient sitting up in bed. at bedside. Patient states he is continuing to have pain behind the R eye, but it is "manageable". Consult with neurologist coompleted approximately 1330. Neurologist would like patinet to have MRI of the lumbar spine and R hip. Patient SR on the monitor. Call light within reach. NAD noted. Will continue to monitor.
--- NOTE | 2022-09-16 16:39 | NUR ---
Patient lying in bed. Temp improved from 96.6 at 1530 to 97.7. Patient states he is having pain, but is manageable. SR on the monitor. Breathing even and unlabored. NAD noted. Will continue to monitor.
--- NOTE | 2022-09-16 18:20 | NUR ---
Patient lying in bed resting. States he has no pain. States that if his "sinus RUIZ returns, can I have some pain medication". Advised patient that he could have medication for pain if needed. SR on the monitor. Bed in low position. Call light within reach.
--- NOTE | 2022-09-16 19:00 | NUR ---
awake. c/o pain. bijan 10mg po given. cardiac catheterization technician shows sinus rhythm. #20 rac saline lock. po fluids taken well. voids per urinal. fall precautions cont.
--- NOTE | 2022-09-16 21:00 | NUR ---
pt has been asleep but is now awake c/o pain behind rt eye. morphine 4mg ivp given. instructed pt about impending move to medsurg. pt verbalized understanding.
--- NOTE | 2022-09-16 21:30 | NUR ---
pt talking on cell phone. no apparent distress.
--- NOTE | 2022-09-16 23:22 | NUR ---
report given to shiloh cortez. spoke to isidro in xray. mri will be able to be done tomorrow.
--- NOTE | 2022-09-16 23:30 | NUR ---
TRANSFERRED TO 267 PER BED.
--- NOTE | 2022-09-16 23:36 | NUR ---
PATIENT TRANSFERRED TO [facility] ROOM. ALERT AND ABLE TO MAKE NEEDS KNOWN. ASSESSMENT COMPLETE. NO SIGNS OF DISTRESS. PATIENT VOICES HE IS UNABLE TO LIFT OR MOVE RIGHT LEG AT ALL. PATIENT WAS ORIENTED TO ROOM AND SURROUNDINGS.
[2022-09-17] VITALS (23 sets, daily range): BP systolic 100–136; BP diastolic 52–85
--- NOTE | 2022-09-17 03:30 | NUR ---
PATIENT REMAINS RESTING IN BED. PROVIDED PATIENT WITH EXTRA PILLOW AND WARM BLANKET PER HIS REQUEST. DENIES NEEDING ANYTHING ELSE AT THIS TIME.
--- NOTE | 2022-09-17 08:00 | NUR ---
GOT REPORT FROM BUFFING WHEEL FORMER MACHINE NURSE. PATIENT ASSESSED. AOX4. NIH COMPLETED WITH A SCORE OF 7 DUE TO HIS RIGHT LEG. PATIENT COMPLAINTS OF PAIN IN HIS RIGHT LEG. NO OTHER NEEDS AT THIS TIME. CALL LIGHT AND BEDSIDE TABLE WITH IN REACH. ADVISED TO CALL IF NEEDING ANYTHING.
--- NOTE | 2022-09-17 10:13 | NUR ---
PATIENT AFTER GETTING PATIENT PO MED PATIENT STATES THAT HE IS HAVING PAIN IN HIS HEAD AND IT FEELS LIKE HIS EYE IS GOING TO POP OUT OF HIS HEAD. STATES THE PAIN IN A 20/10 EVEN AFTER GIVING PATIENT IV MORPHINE. CALL NURSING SUPERVISIOR FOR SECOND PAIR OF EYES AT 1013. 1015 I CALL STROKE ALERT PATIENT STARTED HAVING RIGHT EYE VISUAL LOSS. AT [address] WHEN PATIENT RETURNED BACK TO [facility] UNIT, TRANSFERRED PATIENT TO ICU BED 8 AT 1115. CALLED PATIENT SPOUSE TO INFORM HER OF EVENTS. NO FURTHER QUESTIONS AT THIS TIME. ADVISED HER IF SHE HAD ANY QUESTIONS OR CONCERNS TO CALL US. I ALSO INFORMED HER THAT IF SHE WOULD LIKE TO COME BE WITH PATIENT THAT SHE WAS MORE THAN WELCOMED TO. SHE VERBALIZED UNDERSTANDING.
[2022-09-17 10:48] LABS: BASO% 0.3 % (0-3); EOS% 1.7 % (0-8); HEMOGLOBIN 13.2 g/dl (14.0-18.0); IMMATURE GRANULOCYTES 0.4 % (0.0-5.0); LYMPH% 14.1 % (15-41); MEAN CELL VOLUME 85.2 fL CALC (80.0-100.0); MEAN CORPUSCULAR HGB 26.8 pG CALC (26.0-32.0); MEAN CORPUSCULAR HGB CONC 31.4 g/dL CAL (32.0-36.0); MONO% 6.9 % (2-13); NEUT# 11.25 thou/uL (1.82-7.42); NEUT% 76.6 % (42-76); RED BLOOD COUNT 4.93 mill/uL (4.70-6.10); RED CELL DISTRI WIDTH 16.3 % (11.5-15.5)
[2022-09-17 10:55] LABS: GFR FOR AFR.AMER. > 60 ML/MIN (>=60 (CALC)); GFR OTHER RACES > 60 ML/MIN (>=60 (CALC))
[2022-09-17 10:59] LABS: ALBUMIN 3.9 g/dL (3.2-5.0); ALKALINE PHOSPHATASE 68 u/l (38-126); ANION GAP 11 (6-22 (CALC)); BILIRUBIN, TOTAL 0.6 mg/dL (0.2-1.3); BUN 18 mg/dL (9-20); BUN/CREATININE RATIO 17 (12-20 (CALC)); CARBON DIOXIDE 26 mmol/l (22-30); CHLORIDE 103 mmol/l (95-108); GFR FOR AFR.AMER. > 60 ML/MIN (>=60 (CALC)); GFR OTHER RACES > 60 ML/MIN (>=60 (CALC)); POTASSIUM 4.3 mmol/l (3.5-5.1); SGOT/AST 21 u/l (17-59); SODIUM 136 mmol/l (137-146); TOTAL PROTEIN 6.9 g/dL (6.3-8.2)
--- NOTE | 2022-09-17 11:30 | NUR ---
PT ARRIVES TO ICU-8 VIA STRETCHER FROM [facility] ACCOMPANIED BY MARLYS RN AND DOROTEO RN. PT IS ALERT AND ORIENTED X 3. HE HAS SIGNIFICANT HEADACHE AND IS HOLDING WASHCLOTH TO HIS FACE. RIGHT LEG IS FLACCID AND THERE IS SENSORY DEFICIT ON THE RIGHT LEG. PT TO CT AND MRI SOON.
--- NOTE | 2022-09-17 13:11 | NUR ---
called [facility] transfer center, spoke to capri, gave pt info and md info. capri will call .
--- NOTE | 2022-09-17 16:14 | NUR ---
PT SEEN IMPROVED NIHSS BY ONE POINT PER NOT BLURRY VISION, SEES OBJECTS IN VISUAL FIELD NOW NORMALLY, NOW AT A 7. FAMILY HAS COME AND GONE.
--- NOTE | 2022-09-17 17:51 | NUR ---
REPORT PROVIDED BY PHONE TO [facility] NURSE WU AT THIS TIME. ANTICIPATED PICKUP TIME FOR TRANSFER IS 1830 BY POSITIVE TRANSPORT.
--- NOTE | 2022-09-17 18:35 | NUR ---
PT LEAVES AT THIS TIME FOR [facility] VIA POSITIVE TRANSPORT.
== END 2022-09-17 18:40 | disposition short-term general hospital (02) | DRG 64 ==
LOC: ED 17:43 → MS2 19:36 → ICU 09-15 14:30 → MS2 09-16 23:36 → ICU 09-17 11:15
PROVIDERS: Family Medicine; Internal Medicine; ADMIT Internal Medicine; ATTEND Internal Medicine
DX: I63.512 Cerebral infarction due to unspecified occlusion or stenosis of left middle cerebral artery (principal); I63.232 Cerebral infarction due to unspecified occlusion or stenosis of left carotid arteries; I69.351 Hemiplegia and hemiparesis following cerebral infarction affecting right dominant side; G81.91 Hemiplegia, unspecified affecting right dominant side; I63.522 Cerebral infarction due to unspecified occlusion or stenosis of left anterior cerebral artery; R20.2 Paresthesia of skin; R20.0 Anesthesia of skin; R29.705 NIHSS score 5; I10 Essential (primary) hypertension; E11.9 Type 2 diabetes mellitus without complications; E78.00 Pure hypercholesterolemia, unspecified; J44.9 Chronic obstructive pulmonary disease, unspecified; I25.10 Atherosclerotic heart disease of native coronary artery without angina pectoris; I25.2 Old myocardial infarction; F17.210 Nicotine dependence, cigarettes, uncomplicated; Z95.5 Presence of coronary angioplasty implant and graft
CPT/HCPCS: J1650; Q9967

== ENCOUNTER 2022-10-23 18:21 | Emergency (ER) | payer MEDICARE, MEDICAID ==
[~2022-10-23] VITALS: Ht 175.3 cm; Wt 74.8 kg
[2022-10-23] VITALS (9 sets, daily range): BP systolic 130–176; BP diastolic 66–111
[2022-10-23 18:47] LABS: BASO% 0.7 % (0-3); EOS% 2.8 % (0-8); HEMATOCRIT 39.2 % (39.0-50.0); HEMOGLOBIN 12.7 g/dl (14.0-18.0); IMMATURE GRANULOCYTES 1.6 % (0.0-5.0); LYMPH% 20.5 % (15-41); MEAN CELL VOLUME 86.7 fL CALC (80.0-100.0); MEAN CORPUSCULAR HGB 28.1 pG CALC (26.0-32.0); MEAN CORPUSCULAR HGB CONC 32.4 g/dL CAL (32.0-36.0); NEUT# 7.01 thou/uL (1.82-7.42); NEUT% 66.4 % (42-76); RED BLOOD COUNT 4.52 mill/uL (4.70-6.10)
[2022-10-23 18:56] LABS: ALBUMIN 3.8 g/dL (3.2-5.0); ALKALINE PHOSPHATASE 89 u/l (38-126); ANION GAP 14 (6-22 (CALC)); BILIRUBIN, TOTAL 0.5 mg/dL (0.2-1.3); BUN 6 mg/dL (9-20); BUN/CREATININE RATIO 7 (12-20 (CALC)); CARBON DIOXIDE 27 mmol/l (22-30); CHLORIDE 104 mmol/l (95-108); CREATININE 0.9 mg/dL (0.7-1.3); GFR FOR AFR.AMER. > 60 ML/MIN (>=60 (CALC)); GFR OTHER RACES > 60 ML/MIN (>=60 (CALC)); POTASSIUM 3.8 mmol/l (3.5-5.1); SODIUM 141 mmol/l (137-146); TOTAL PROTEIN 6.9 g/dL (6.3-8.2)
[2022-10-23 18:57] LABS: SGOT/AST 39 u/l (17-59)
[2022-10-23 19:44] LABS: URINE BILIRUBIN - DIPSTICK Negative (NEGATIVE); URINE BLOOD DIPSTICK Negative (NEGATIVE); URINE GLUCOSE - DIPSTICK >=1000 mg/dL (NEGATIVE); URINE KETONE Negative (NEGATIVE); URINE LEUK ESTERASE Negative (NEGATIVE); URINE NITRITE - DIPSTICK Negative (Negative); URINE PROTEIN - DIPSTICK Negative (NEG-TRACE); URINE UROBILINOGEN - DIPSTICK 0.2 E.U./dL (0.2)
[2022-10-23 19:51] LABS: URINE COLOR Yellow
[2022-10-23] MEDS ORDERED: FIORICET PO (20:15)
== END 2022-10-23 21:10 | disposition home or self-care (01) ==
LOC: ED 18:21
PROVIDERS: Nurse Practitioner
DX: R51.9 Headache, unspecified (principal); I10 Essential (primary) hypertension; E11.9 Type 2 diabetes mellitus without complications; E78.00 Pure hypercholesterolemia, unspecified; J44.9 Chronic obstructive pulmonary disease, unspecified; I25.2 Old myocardial infarction; F17.200 Nicotine dependence, unspecified, uncomplicated; Z86.73 Personal history of transient ischemic attack (TIA), and cerebral infarction without residual deficits; Z95.5 Presence of coronary angioplasty implant and graft; Z79.84 Long term (current) use of oral hypoglycemic drugs; Z79.02 Long term (current) use of antithrombotics/antiplatelets

== ENCOUNTER 2022-11-04 23:03 | Observation (INO) | payer MEDICARE, MEDICAID ==
[~2022-11-04] VITALS: Ht 175.3 cm; Wt 76.4 kg
[~2022-11-04 23:03] MED LIST changes: +FIORICET PO
[2022-11-04 23:26] LABS: BASO% 0.4 % (0-3); EOS% 2.8 % (0-8); HEMATOCRIT 40.6 % (39.0-50.0); HEMOGLOBIN 13.1 g/dl (14.0-18.0); IMMATURE GRANULOCYTES 0.5 % (0.0-5.0); LYMPH% 25.4 % (15-41); MEAN CELL VOLUME 87.9 fL CALC (80.0-100.0); MEAN CORPUSCULAR HGB 28.4 pG CALC (26.0-32.0); MEAN CORPUSCULAR HGB CONC 32.3 g/dL CAL (32.0-36.0); MONO% 8.7 % (2-13); NEUT# 8.41 thou/uL (1.82-7.42); NEUT% 62.2 % (42-76); RED BLOOD COUNT 4.62 mill/uL (4.70-6.10); RED CELL DISTRI WIDTH 16.6 % (11.5-15.5)
[2022-11-04 23:39] LABS: ALKALINE PHOSPHATASE 69 u/l (38-126); ANION GAP 13 (6-22 (CALC)); BILIRUBIN, TOTAL 0.5 mg/dL (0.2-1.3); BUN 8 mg/dL (9-20); BUN/CREATININE RATIO 9 (12-20 (CALC)); CALCULATED LDLCHOLESTEROL 68 mg/dL (62-129 (CALC)); CARBON DIOXIDE 24 mmol/l (22-30); CHLORIDE 104 mmol/l (95-108); CHOLESTEROL HDL RATIO 5.6 (<4.4 (CALC)); CREATININE 0.9 mg/dL (0.7-1.3); GFR FOR AFR.AMER. > 60 ML/MIN (>=60 (CALC)); GFR OTHER RACES > 60 ML/MIN (>=60 (CALC)); HDL CHOLESTEROL 31 mg/dL (39.0-59.0); SGOT/AST 33 u/l (17-59); SODIUM 136 mmol/l (137-146); TOTAL CHOLESTEROL 172 mg/dl (0-199); TOTAL PROTEIN 7.2 g/dL (6.3-8.2); TOTAL TRIGLYCERIDES 364 mg/dl (0-149); VLDL CHOLESTROL 73 mg/dl (8-62 (CALC))
[2022-11-04 23:40] VITALS: BP 143/79
[2022-11-04 23:40] LABS: POTASSIUM 4.6 mmol/l (3.5-5.1)
[2022-11-04 23:41] LABS: INTERNATIONAL NORMALIZED RATIO 1.1 RATIO (0.7-1.3); PROTHROMBIN TIME 10.5 SECONDS (9.0-12.5)
[2022-11-04 23:45] VITALS: BP 146/83
[2022-11-05] VITALS (43 sets, daily range): BP systolic 110–151; BP diastolic 50–103
[2022-11-05] MEDS ORDERED: ELIQUIS5 MG PO (00:31)
[2022-11-05 02:37] LABS: URINE BILIRUBIN - DIPSTICK Negative (NEGATIVE); URINE BLOOD DIPSTICK Negative (NEGATIVE); URINE COLOR Yellow; URINE GLUCOSE - DIPSTICK 500 mg/dL (NEGATIVE); URINE KETONE Negative (NEGATIVE); URINE LEUK ESTERASE Negative (NEGATIVE); URINE NITRITE - DIPSTICK Negative (Negative); URINE PROTEIN - DIPSTICK Negative (NEG-TRACE); URINE UROBILINOGEN - DIPSTICK 0.2 E.U./dL (0.2)
[2022-11-05 12:15] LABS: CHOLESTEROL HDL RATIO 5.1 (<4.4 (CALC))
== END 2022-11-05 16:25 | disposition home or self-care (01) ==
LOC: ED 23:03 → ED-I 23:31 → ED 23:31 → ED-I 11-05 00:01 → ED 11-05 00:31 → ED-I 11-05 00:32 → MS2 11-05 12:19
PROVIDERS: Emergency Medicine; ADMIT Student in an Organized Health Care Education/Training Program; ATTEND Student in an Organized Health Care Education/Training Program
DX: R29.810 Facial weakness (principal); R47.81 Slurred speech; I10 Essential (primary) hypertension; E11.9 Type 2 diabetes mellitus without complications; J44.9 Chronic obstructive pulmonary disease, unspecified; I48.91 Unspecified atrial fibrillation; E78.00 Pure hypercholesterolemia, unspecified; I65.22 Occlusion and stenosis of left carotid artery; I69.351 Hemiplegia and hemiparesis following cerebral infarction affecting right dominant side; I25.10 Atherosclerotic heart disease of native coronary artery without angina pectoris; K21.9 Gastro-esophageal reflux disease without esophagitis; F17.210 Nicotine dependence, cigarettes, uncomplicated; I25.2 Old myocardial infarction; Z95.5 Presence of coronary angioplasty implant and graft; Z79.84 Long term (current) use of oral hypoglycemic drugs; Z79.01 Long term (current) use of anticoagulants; Z79.02 Long term (current) use of antithrombotics/antiplatelets; Z79.82 Long term (current) use of aspirin
CPT/HCPCS: Q9967

== ENCOUNTER 2023-04-10 16:02 | Emergency (ER) | payer MEDICARE ==
[2023-04-10] VITALS (8 sets, daily range): BP systolic 124–154; BP diastolic 67–90
[~2023-04-10] VITALS: Ht 175.3 cm; Wt 68.0 kg
[~2023-04-10 16:02] MED LIST changes: +ELIQUIS5 MG PO
[2023-04-10] MEDS ORDERED: traMADol HCL 50 MG/TAB PO ONE (16:45)
[2023-04-10 17:18] LABS: BASO% 0.5 % (0-3); EOS% 3.3 % (0-8); HEMATOCRIT 42.8 % (39.0-50.0); HEMOGLOBIN 13.6 g/dl (14.0-18.0); IMMATURE GRANULOCYTES 0.3 % (0.0-5.0); LYMPH% 16.9 % (15-41); MEAN CELL VOLUME 87.9 fL CALC (80.0-100.0); MEAN CORPUSCULAR HGB 27.9 pG CALC (26.0-32.0); MEAN CORPUSCULAR HGB CONC 31.8 g/dL CAL (32.0-36.0); MONO% 8.7 % (2-13); NEUT# 8.62 thou/uL (1.82-7.42); NEUT% 70.3 % (42-76); RED BLOOD COUNT 4.87 mill/uL (4.70-6.10); RED CELL DISTRI WIDTH 12.5 % (11.5-15.5)
[2023-04-10 17:38] LABS: ALKALINE PHOSPHATASE 90 u/l (38-126); BUN 13 mg/dL (9-20); BUN/CREATININE RATIO 12 (12-20 (CALC)); C-REACTIVE PROTEIN 1.2 mg/dL (0-0.9); CHLORIDE 102 mmol/l (95-108); CREATININE 1.1 mg/dL (0.7-1.3); GFR FOR AFR.AMER. > 60 ML/MIN (>=60 (CALC)); GFR OTHER RACES > 60 ML/MIN (>=60 (CALC)); POTASSIUM 4.5 mmol/l (3.5-5.1); SGOT/AST 21 u/l (17-59); SODIUM 138 mmol/l (137-146); TOTAL PROTEIN 7.2 g/dL (6.3-8.2)
[2023-04-10 17:40] LABS: ALBUMIN 4.4 g/dL (3.2-5.0); ANION GAP 12 (6-22 (CALC)); BILIRUBIN, TOTAL 0.4 mg/dL (0.2-1.3); CARBON DIOXIDE 29 mmol/l (22-30)
[2023-04-10] MEDS ORDERED: KEFLEX500 MG PO (18:49)
[2023-04-10] MEDS ORDERED: TRAMADOL HYDROC50 M1 PO (18:50)
== END 2023-04-10 19:43 | disposition home or self-care (01) ==
LOC: ED 16:02
PROVIDERS: Nurse Practitioner
DX: L03.115 Cellulitis of right lower limb (principal); I10 Essential (primary) hypertension; E11.9 Type 2 diabetes mellitus without complications; J44.9 Chronic obstructive pulmonary disease, unspecified; I25.10 Atherosclerotic heart disease of native coronary artery without angina pectoris; I25.2 Old myocardial infarction; F17.200 Nicotine dependence, unspecified, uncomplicated; Z79.84 Long term (current) use of oral hypoglycemic drugs; Z86.73 Personal history of transient ischemic attack (TIA), and cerebral infarction without residual deficits